=== PATIENT | male | born 1985 | race Caucasian/White ===

== ENCOUNTER 2017-07-09 08:28 | Emergency (ER) | payer OTHER ==
[~2017-07-09] VITALS: Ht 190.5 cm; Wt 154.7 kg
--- OUTSIDE RECORDS SUMMARY | ~2017-07-09 | XMS | Clinical Summary ---
Demographics + + + | Address | [address] | | | [place] [address] | + + + | Home Phone | | + + + | Preferred Language | Unknown | + + + | Marital Status | Single | + + + | Taoist Affiliation | NON | + + + | Race | White | + + + | Ethnic Group | Not or | + + + Author + + + | Author | [facility] | + + + | Organization | [facility] | + + + | Address | Unknown | + + + | Phone | Unavailable | + + + Support + + + + + | Name | Relationship | Address | Phone | + + + + + | SUMMER BRUNO & | ECON | [place] | | | [place] | | | | + + + + + Care Team Providers + +------+ + | Care Work Counselor Name | Role | Phone | + +------+ + | Sandra Hernandez | PP | | + +------+ + Source Comments LUIS DANIEL is fully live on both [facility] and [facility] In[facility] Allergies No Known Allergies Current Medications + + +--------+---------+------+------+-------+ | Prescription | Sig. | Disp. | Refills | Star | End | Statu | | | | | | t | Date | s | | | | | | Date | | | + + +--------+---------+------+------+-------+ | methocarbamol 500 | Take 1,000 mg by | | | | | Activ | | mg oral tablet | mouth four times | | | | | e | | | daily as needed. | | | | | | + + +--------+---------+------+------+-------+ | | Take 1-2 tablets by | | | | | Activ | | HYDROcodone-acetamin | mouth every four | | | | | e | | ophen 5-325 mg oral | hours as needed. | | | | | | | tablet | | | | | | | + + +--------+---------+------+------+-------+ | | Take 1 tablet by | 14 | 0 | 02/1 | 02/2 | Activ | | trimethoprim-sulfame | mouth two times | tablet | | 6/20 | 3/20 | e | | thoxazole 160-800 mg | daily for 7 days. | | | 18 | 18 | | | oral tablet | | | | | | | + + +--------+---------+------+------+-------+ | oxyCODONE | Take 1-2 tablets by | 20 | 0 | 02/1 | | Activ | | (immediate release) | mouth every six | tablet | | 6/20 | | e | | 5 mg oral tablet | hours as needed for | | | 18 | | | | | severe pain or | | | | | | | | breakthrough pain. | | | | | | + + +--------+---------+------+------+-------+ | ibuprofen 600 mg | Take 1 tablet by | 30 | 0 | 02/1 | | Activ | | oral tablet | mouth every six | tablet | | 6/20 | | e | | | hours as needed | | | 18 | | | | | (pain). Take with | | | | | | | | food and a full | | | | | | | | glass of water. | | | | | | + + +--------+---------+------+------+-------+ | acetaminophen 500 | Take 2 tablets by | 30 | 0 | 02/1 | | Activ | | mg oral tablet | mouth every six | tablet | | 6/20 | | e | | | hours as needed for | | | 18 | | | | | moderate pain. | | | | | | | | maximum 8 tablets | | | | | | | | per day | | | | | | + + +--------+---------+------+------+-------+ Active Problems Not on file Encounters +--------+ + + + + | Date | Type | Specialty | Care Team | Description | +--------+ + + + + | 07/04/ | Emergency | | Latoya Dhillon, | | | 2018 - | | | Roxy Love MD | | | | | | Micha Pena, | | | 07/05/ | | | ANP Marlene, | | | 2017 | | | SHON Quiles | | | | | | Chemo Tamayo PA-C | | +--------+ + + + + +---+ + | | Discharge | | | Summaries | | | - Roni, | | | SHON Mclain | | | - | | | 07/05/2017 | | | 7:01 AM | | | PST | | | Formatting | | | of this | | | note may be | | | different | | | from the | | | original.ED | | | | | | OBSERVATION | | | UNIT | | | DISCHARGE | | | SUMMARYDate | | | of | | | Admission: | | | 07/04/2017Da | | | te of | | | Discharge: | | | 07/05/2017Pr | | | imary Care | | | Provider: | | | Sandra | | | Mary, | | | PAED Obs | | | Provider: | | | Chemo | | | Roni | | | SHON Chief | | | Complaint: | | | Testicular | | | swelling | | | and | | | Testicular | | | PainFinal | | | Diagnoses: | | | L02.215 | | | Perineal | | | [id number]. 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 male | | | with a PMH | | | of chronic | | | hip pain | | | who | | | presented | | | to the ED | | | for | | | evaluation | | | of scrotal | | | pain. Chri | | | stopher | | | Martita is | | | a 31 y.o. | | | male w/ | | | obesity and | | | chronic | | | hip pain | | | s/p hip | | | replacement | | | who | | | presents | | | with | | | perineal | | | pain that | | | started | | | about 5-6 | | | days ago. | | | He reports | | | that he had | | | a "pimple" | | | on the | | | posterior | | | aspect of | | | his scrotum | | | that he | | | popped. A | | | day or two | | | later, he | | | noticed | | | pain and | | | swelling | | | around the | | | area which | | | has | | | progressive | | | ly | | | worsened. | | | He went to | | | the | | | [place] | | | ED | | | three days | | | ago and | | | was | | | prescribed | | | keflex and | | | bactrim. | | | The pain | | | and | | | swelling | | | didn't get | | | better, and | | | he started | | | to get | | | pain and | | | swelling up | | | into his | | | right | | | groin. He | | | has had | | | some low | | | grade | | | fevers | | | (100F) and | | | sweats, but | | | no high | | | fevers or | | | rigors. | | | Voiding | | | without | | | problem. He | | | came with | | | his GF to | | | [facility] ED for | | | further | | | eval." - | | | Micha | | | Jean, INSURANCE POLICY CLERK | | | H&P noteED | | | Acute | | | Course:ED | | | Triage | | | Vitals BP | | | Temp Pulse | | | Pulse - | | | Plethysmogr | | | aph Resp | | | SpO2 | | | 07/04/17 | | | 1523 | | | 07/04/17 | | | 1523 | | | 07/04/17 | | | 1523 | | | 07/04/17 | | | 1816 | | | 07/04/17 | | | 1523 | | | 07/04/17 | | | 1523 138/73 | | | 36.8 C | | | (!) 107 80 | | | pulses/min | | | 20 100 % | | | "Upon | | | presentatio | | | n to the | | | ED, | | | Christopher | | | 's vital | | | signs were | | | initially | | | notable for | | | elevated | | | BP to | | | 138/73, | | | tachycardia | | | to 107 | | | with | | | otherwise | | | normal | | | vital | | | signs. | | | Physical | | | exam | | | significant | | | for On the | | | right | | | posterior | | | scrotum, | | | there is a | | | punctate | | | dimple with | | | underlying | | | fluctuant | | | collection | | | just deep | | | to the | | | skin, some | | | erythema of | | | the skin. | | | Moderately | | | tender. CT | | | pelvis | | | showed | | | focal | | | perineal | | | abscess | | | with | | | phlegmonous | | | change and | | | cellulitis | | | stretching | | | and the | | | scrotum and | | | superiorly | | | around the | | | right | | | spermatic | | | cord. | | | Urology | | | service was | | | consulted | | | and drained | | | the | | | abscess. | | | Patient was | | | started on | | | IV | | | vancomycin | | | and | | | zosyn. Onc | | | e stable, | | | the patient | | | was | | | transferred | | | to the | | | Emergency | | | Department | | | Observation | | | Unit with | | | a diagnosis | | | of scrotal | | | abscess | | | for | | | continuatio | | | n of care | | | including | | | serial | | | examination | | | s, IV abx, | | | and | | | re-evaluati | | | on by | | | urology." - | | | Micha | | | Jean, | | | NPObservati | | | on Unit | | | Course:Whil | | | e in ED | | | Obs, the | | | patient | | | remained | | | hemodynamic | | | ally | | | stable. He | | | has been | | | tolerating | | | the | | | antibiotics | | | . He feels | | | well enough | | | for | | | discharge | | | this | | | morning | | | after | | | urology | | | evaluated | | | and | | | repacked | | | his | | | incision | | | site. They | | | recommended | | | BID | | | packing | | | until wound | | | heals in | | | which his | | | significant | | | other with | | | help with. | | | They | | | agreed with | | | | | | antibiotics | | | and follow | | | up with | | | his PCP in | | | 7 days. If | | | he cannot | | | get into | | | his PCPs | | | office he | | | can call | | | them for a | | | follow up | | | appointment | | | .Imaging/Pe | | | rtinent | | | Results:CT | | | abdomen/pel | | | vis with IV | | | contrast | | | IMPRESSION: | | | - Focal | | | perineal | | | abscess | | | with | | | phlegmonous | | | change and | | | cellulitis | | | stretching | | | and the | | | scrotum and | | | superiorly | | | around the | | | right | | | spermatic | | | cord. | | | Consults:Ur | | | ologyPertin | | | ent Exam | | | Findings:BP | | | 132/70 | | | | Pulse 78 | | | | Temp 37.2 | | | C | RR 16 | | | | Ht 1.905 | | | m (6' 3") | | | | Wt 153.3 | | | kg (338 lb) | | | | SpO2 94% | | | | BMI | | | 42.25 | | | kg/(m^2)Gen | | | eral | | | appearance: | | | Non-toxic. | | | NAD.HEENT: | | | NCAT. | | | Sclera | | | anicteric, | | | without | | | injection, | | | EOMI. | | | Mucous | | | membranes | | | moist. | | | Trachea | | | midline.CV: | | | +S1, +S2, | | | RRR, no | | | rubs, | | | murmurs, | | | clicks or | | | gallops.Res | | | p: Chest | | | symmetrical | | | . No | | | respiratory | | | distress. | | | No use of | | | accessory | | | muscles. | | | CTAB, no | | | wheezes, | | | rales, | | | rhonchi, or | | | | | | rubs.Abdome | | | n: Soft, | | | NT/ND. No | | | rebound or | | | guarding. | | | NABS x 4. | | | No HSM | | | noted.Extre | | | m: No | | | deformities | | | or visible | | | joint | | | swelling. | | | : | | | Perineal/sc | | | rotal | | | abscess s/p | | | I&D and | | | packed/band | | | aged just | | | moments ago | | | by | | | urology.Per | | | ipheral | | | Vascular: | | | No edema, | | | warmth, or | | | TTP. 2+ DP | | | pulses | | | bilaterally | | | . No | | | cyanosis or | | | | | | clubbing.Ne | | | uro: A&O | | | x3, CN | | | II-XII | | | intact | | | grossly, | | | equal | | | movement of | | | all | | | extremities | | | , sensation | | | and motor | | | function | | | grossly | | | intact.Psyc | | | h: | | | Appropriate | | | mood, | | | affect and | | | insight.Ski | | | n: | | | Appropriate | | | color, | | | warm, | | | dry.Assessm | | | ent/Plan:1. | | | Scrotal | | | abscess s/p | | | I&D - | | | Tolerated | | | IV unasyn, | | | vanco, and | | | clindamycin | | | while here | | | - | | | Transition | | | to PO | | | bactrim now | | | that the | | | wound has | | | been | | | drained - | | | Urology | | | recommends | | | BID packing | | | until | | | wound heals | | | - Follow | | | up with PCP | | | in 5-7 | | | days or | | | with | | | urology if | | | unable to | | | get into | | | your | | | PCPDisposit | | | ion: | | | HomeDischar | | | ge | | | Condition: | | | StableMedic | | | ations: | | | Discharge | | | Medication | | | List as of | | | 07/05/2017 | | | 9:44 AM | | | START | | | taking | | | these | | | medications | | | Details | | | acetaminoph | | | en 500 mg | | | oral tablet | | | Take 2 | | | tablets by | | | mouth every | | | six hours | | | as needed | | | for | | | moderate | | | pain. | | | maximum 8 | | | tablets per | | | day, | | | Disp-30 | | | tablet, | | | R-0, Print | | | Prescriptio | | | n | | | ibuprofen | | | 600 mg oral | | | tablet | | | Take 1 | | | tablet by | | | mouth every | | | six hours | | | as needed | | | (pain). | | | Take with | | | food and a | | | full glass | | | of water., | | | Disp-30 | | | tablet, | | | R-0, Print | | | Prescriptio | | | n | | | oxyCODONE | | | (immediate | | | release) 5 | | | mg oral | | | tablet Take | | | 1-2 | | | tablets by | | | mouth every | | | six hours | | | as needed | | | for severe | | | pain or | | | breakthroug | | | h pain., | | | Disp-20 | | | tablet, | | | R-0Schedule | | | IIPrint | | | Prescriptio | | | n | | | trimethopri | | | m-sulfameth | | | oxazole | | | 160-800 mg | | | oral tablet | | | Take 1 | | | tablet by | | | mouth two | | | times daily | | | for 7 | | | days., | | | Disp-14 | | | tablet, | | | R-0, Print | | | Prescriptio | | | n | | | Instruction | | | s: 1. | | | Activity: | | | As | | | tolerated2. | | | Diet: | | | Regular3. | | | Follow up | | | or | | | establish | | | care with a | | | primary | | | care | | | provider in | | | 7 days, or | | | sooner if | | | needed.4. | | | Return to | | | care if the | | | symptoms | | | you | | | presented | | | with worsen | | | or persist | | | despite | | | current | | | treatment | | | plan or if | | | any other | | | symptoms | | | arise that | | | are | | | concerning | | | such as but | | | not | | | limited to | | | fevers, | | | chills, | | | nausea, | | | vomiting, | | | chest pain, | | | abdominal | | | pain, | | | shortness | | | of breath, | | | neck pain | | | or | | | stiffness, | | | severe | | | headaches, | | | confusion, | | | or if any | | | other | | | symptoms | | | arise that | | | are | | | concerning. | | | Follow-up: | | | 1. PCP in 7 | | | days or | | | sooner if | | | needed for | | | wound | | | recheck2. | | | Urology in | | | 7 days if | | | you cannot | | | see your | | | PCP by that | | | timeNoah | | | Tamayo, | | | PA-CEmergen | | | cy | | | DepartmentR | | | esults for | | | orders | | | placed or | | | performed | | | during the | | | hospital | | | encounter | | | of 07/04/17 | | | BASIC | | | METABOLIC | | | SET (NA, K, | | | CL, TCO2, | | | BUN, CR, | | | GLU, CA) | | | Result | | | Value Ref | | | Range | | | GLUCOSE, | | | PLASMA | | | (LAB) 89 70 | | | - 99 mg/dL | | | BUN, | | | PLASMA | | | (LAB) 12 6 | | | - 20 mg/dL | | | CREATININE | | | PLASMA | | | (LAB) 1.27 | | | 0.70 - 1.30 | | | mg/dL | | | EGFR | | | - | | | SOUTH AFRICAN | | | >60 >60 | | | mL/min | | | EGFR NON | | | -JAN | | | RICAN >60 | | | >60 mL/min | | | SODIUM, | | | PLASMA | | | (LAB) 135 | | | (L) 136 - | | | 145 mmol/L | | | POTASSIUM, | | | PLASMA | | | (LAB) 3.8 | | | 3.4 - 5.0 | | | mmol/L | | | CHLORIDE, | | | PLASMA | | | (LAB) 102 | | | 97 - 108 | | | mmol/L | | | TOTAL CO2, | | | PLASMA | | | (LAB) 25 21 | | | - 32 | | | mmol/L | | | CALCIUM, | | | PLASMA | | | (LAB) 9.0 | | | 8.6 - 10.2 | | | mg/dL | | | ANION GAP 8 | | | 4 - 11 | | | mmol/L | | | POTASSIUM | | | CMNT No | | | Hemo UA, | | | DIPSTICK | | | ONLY Result | | | Value Ref | | | Range | | | COLOR(UR) | | | Yellow | | | APPEARANCE | | | Clear | | | GLUCOSE(UR) | | | Negative | | | Negative, | | | 50.0 mg/dL | | | | | | PROTEIN(LAB | | | ) Negative | | | Negative, | | | 30.0 mg/dL | | | BILIRUBIN | | | Negative | | | Negative | | | UROBILINOGE | | | N >=4.0 (A) | | | <2.0 mg/dL | | | PH(UR) | | | 5.0 5.0 - | | | 8.0 BLOOD | | | Negative | | | Negative | | | KETONES 5.0 | | | (A) | | | Negative | | | mg/dL | | | NITRITES | | | Negative | | | Negative | | | LEUKOCYTE | | | ESTERASE | | | Negative | | | Negative | | | SPECIFIC | | | GRAVITY | | | 1.041 (H) | | | 1.005 - | | | 1.030 | | | URINE, | | | MICROSCOPIC | | | EXAM | | | Result | | | Value Ref | | | Range RED | | | CELLS 1 0 - | | | 3 /hpf | | | WHITE CELLS | | | 1 0 - 5 | | | /hpf | | | BACTERIA | | | None None | | | /hpf YEAST | | | (LAB) None | | | None /hpf | | | SQUAMOUS | | | EPITHELIAL | | | None None | | | /hpf | | | MUCOUS None | | | None /hpf | | | | | | TRICHOMONAS | | | None None | | | /hpf | | | NON-SQUAMOU | | | S EPITH | | | None None | | | /hpf | | | HYALINE | | | CASTS 0 0 - | | | 2 /lpf | | | GRANULAR | | | CASTS 0 0 - | | | 2 /lpf | | | CELLULAR | | | CASTS 0 <=0 | | | /lpf | | | TRIPLE P04 | | | CRYSTALS | | | None None | | | /hpf | | | CALCIUM | | | OXALATE | | | JUSTINO None | | | None /hpf | | | URIC ACID | | | CRYSTALS | | | None None | | | /hpf | | | AMORPHOUS | | | CRYSTALS | | | None None | | | /hpf | | | CULTURE, | | | WOUND | | | ABSCESS OR | | | ASPIRATE W/ | | | ANAEROBE | | | Result | | | Value Ref | | | Range | | | CULTURE | | | RESULT | | | Staphylococ | | | cus aureus | | | (A) | | | Susceptibil | | | ity | | | Staphylococ | | | cus aureus | | | - | | | SUSCEPTIBIL | | | ITY-RENEE | | | Cefazolin | | | Sensitive | | | | | | Clindamycin | | | Sensitive | | | | | | Erythromyci | | | n | | | Sensitive | | | Oxacillin | | | Sensitive | | | | | | Penicillin | | | Resistant | | | | | | Trimethopri | | | m/Sulfa | | | Sensitive | | | | | | Tetracyclin | | | e | | | Sensitive | | | | | | Vancomycin | | | Sensitive | | | ED | | | BG-LAC,POC | | | Result | | | Value Ref | | | Range ED | | | BG POC TC02 | | | 28 23 - 29 | | | mmol/L ED | | | BG POC PH | | | 7.40 7.35 - | | | 7.45 ED | | | BG POC PCO2 | | | 43 35 - 50 | | | mmHg ED | | | BG POC HCO3 | | | 26 22 - 28 | | | mmol/L ED | | | BG POC BE | | | 2.0 mmol/L | | | ED BG POC | | | PO2 <50 (L) | | | 30 - 55 | | | mmHg ED BG | | | POC SO2 42 | | | % ED | | | LACTATE POC | | | 1.2 0.5 - | | | 2.2 mmol/L | | | ED BG POC | | | TEMP 98.9 F | | | ISTAT | | | SAMPLE TYPE | | | VENOUS | | | CBC AND | | | AUTO DIFF | | | Result | | | Value Ref | | | Range | | | WHITE CELL | | | COUNT 17.40 | | | (H) 3.50 - | | | 10.80 K/cu | | | mm RED | | | CELL COUNT | | | 5.08 4.50 - | | | 6.00 M/cu | | | mm | | | HEMOGLOBIN | | | 15.3 13.5 - | | | 17.5 g/dL | | | HEMATOCRIT | | | 45.6 41.0 | | | - 53.0 % | | | MCV 89.8 | | | 80.0 - 96.0 | | | fL MCHC | | | 33.6 33.0 - | | | 35.5 g/dL | | | RDW SD | | | 41.3 35.1 - | | | 46.3 fL | | | PLATELET | | | COUNT 321 | | | 150 - 400 | | | K/cu mm | | | MPV 9.5 (L) | | | 9.7 - 12.3 | | | fL NRBC% | | | 0.0 0.0 - | | | 0.3 % | | | NRBC# 0.00 | | | 0.00 - 0.02 | | | K/cu mm | | | NEUTROPHIL | | | % 72.6 (H) | | | 50.0 - 70.0 | | | % | | | LYMPHOCYTE | | | % 16.1 (L) | | | 18.0 - 42.0 | | | % | | | MONOCYTE % | | | 8.0 3.5 - | | | 9.0 % EOS | | | % 2.5 1.0 - | | | 3.0 % | | | BASO % 0.3 | | | 0.0 - 2.0 % | | | IG% 0.5 | | | 0.0 - 1.0 % | | | | | | NEUTROPHIL | | | # 12.61 (H) | | | 1.80 - | | | 7.70 K/cu | | | mm | | | LYMPHOCYTE | | | # 2.81 1.00 | | | - 4.80 | | | K/cu mm | | | MONOCYTE # | | | 1.40 (H) | | | 0.10 - 0.90 | | | K/cu mm | | | EOS # 0.43 | | | 0.00 - 0.50 | | | K/cu mm | | | BASO # 0.06 | | | 0.00 - | | | 0.10 K/cu | | | mm IG# | | | 0.09 0.00 - | | | 0.10 K/cu | | | mm CULTURE, | | | BLOOD | | | BACTI & | | | YEAST [facility] | | | Result | | | Value Ref | | | Range | | | CULTURE | | | RESULT No | | | growth to | | | date. | | | CULTURE, | | | BLOOD BACTI | | | & YEAST | | | [facility] Result | | | Value Ref | | | Range | | | CULTURE | | | RESULT No | | | growth to | | | date. | +---+ + +--------+ +---+---+---+ | 07/04/ | Procedure | | | | | 2018 | Pass | | | | +--------+ +---+---+---+ from Last 3 Months Social History + +-------+ +--------+------+ | Tobacco [...] | | + +---+---+---+ + + | Tobacco Cessation: Ready to Quit: No | | Comments: 1 ppd | + + + + +---------+ + | Alcohol Use | Drinks/We | oz/Week | Comments | | | ek | | | + + +---------+ + | Yes | | | social | + + +---------+ + + + + | Sex Assigned at | Date Recorded | | | | + + + | Not on file | | + + + Last Filed Vital Signs + + + + | Vital Sign | Reading | Time Taken | + + + + | Blood Pressure | 132/70 | 07/05/2017 10:05 AM PST | + + + + | Pulse | 78 | 07/05/2017 10:05 AM PST | + + + + | Temperature | 37.2 C (98.9 F) | 07/05/2017 7:42 AM PST | + + + + | Respiratory Rate | 16 | 07/05/2017 7:42 AM PST | + + + + | Oxygen Saturation | 94% | 07/05/2017 7:42 AM PST | + + + + | Inhaled Oxygen | - | - | | Concentration | | | + + + + | Weight | 153.3 kg (338 lb) | 07/04/2017 3:23 PM PST | + + + + | Height | 190.5 cm (6' 3") | 07/04/2017 5:59 PM PST | + + + + | Body Mass Index | 42.25 | 07/04/2017 3:23 PM PST | + + + + Plan of Treatment + + + + + | Health Maintenance | Due Date | Last Done | Comments | + + + + + | INFLUENZA VACCINE | | | | | (FLU SHOT) | 7 | | | + + + + + Results BELIA CONNER ONLY (07/04/2017 6:32 PM) + + + + | Component | Value | Ref Range | + + + + | COLOR(UR) | Yellow | | + + + + | APPEARANCE | Clear | | + + + + | GLUCOSE(UR) | Negative | Negative, 50.0 mg/dL | + + + + | PROTEIN(LAB) | Negative | Negative, 30.0 mg/dL | + + + + | BILIRUBIN | Negative | Negative | + + + + | UROBILINOGEN | >=4.0 (A) | <2.0 mg/dL | + + + + | PH(UR) | 5.0 | 5.0 - 8.0 | + + + + | BLOOD | Negative | Negative | + + + + | KETONES | 5.0 (A) | Negative mg/dL | + + + + | NITRITES | Negative | Negative | + + + + | LEUKOCYTE ESTERASE | Negative | Negative | + + + + | SPECIFIC GRAVITY | 1.041 (H)Comment: Specific [place] | 1.005 - 1.030 | | | performed by refractometry | | + + + + + + + | Specimen | Performing Laboratory | + + + | Urine | [facility], [address] | | | [place] [address] | + + + URINE, MICROSCOPIC EXAM (07/04/2017 6:32 PM) + +-------+ + | Component | Value | Ref Range | + +-------+ + | RED CELLS | 1 | 0 - 3 /hpf | + +-------+ + | WHITE CELLS | 1 | 0 - 5 /hpf | + +-------+ + | BACTERIA | None | None /hpf | + +-------+ + | YEAST (LAB) | None | None /hpf | + +-------+ + | SQUAMOUS EPITHELIAL | None | None /hpf | + +-------+ + | MUCOUS | None | None /hpf | + +-------+ + | TRICHOMONAS | None | None /hpf | + +-------+ + | NON-SQUAMOUS EPITH | None | None /hpf | + +-------+ + | HYALINE CASTS | 0 | 0 - 2 /lpf | + +-------+ + | GRANULAR CASTS | 0 | 0 - 2 /lpf | + +-------+ + | CELLULAR CASTS | 0 | <=0 /lpf | + +-------+ + | TRIPLE P04 CRYSTALS | None | None /hpf | + +-------+ + | CALCIUM OXALATE JUSTINO | None | None /hpf | + +-------+ + | URIC ACID CRYSTALS | None | None /hpf | + +-------+ + | AMORPHOUS CRYSTALS | None | None /hpf | + +-------+ + + + + | Specimen | Performing Laboratory | + + + | Urine | [facility], [facility] [address] | | | [place] [address] | + + + ED BG-LAC,POC (07/04/2017 6:01 PM) + +---------+ + | Component | Value | Ref Range | + +---------+ + | ED BG POC TC02 | 28 | 23 - 29 mmol/L | + +---------+ + | ED BG POC PH | 7.40 | 7.35 - 7.45 | + +---------+ + | ED BG POC PCO2 | 43 | 35 - 50 mmHg | + +---------+ + | ED BG POC HCO3 | 26 | 22 - 28 mmol/L | + +---------+ + | ED BG POC BE | 2.0 | mmol/L | + +---------+ + | ED BG POC PO2 | <50 (L) | 30 - 55 mmHg | + +---------+ + | ED BG POC SO2 | 42 | % | + +---------+ + | ED LACTATE POC | 1.2 | 0.5 - 2.2 mmol/L | + +---------+ + | ED BG POC TEMP | 98.9 F | | + +---------+ + | ISTAT SAMPLE TYPE | VENOUS | | + +---------+ + + + + | Specimen | Performing Laboratory | + + + | | [facility] [address] | | | [place] [address] | + + + CT PELVIS W IV CONTRAST (07/04/2017 5:19 PM) + + + | Specimen | Performing Laboratory | + + + | | [facility] VOICE RECOGNITION | + + + + + | Narrative | + + | EXAM: CT pelvis with contrast HISTORY: R inguinal pain and peroneal pain/swelling | | COMPARISON: None available. TECHNIQUE: CT of the pelvis with non-ionic | | iodinated intravenous contrast. Coronal and sagittal reformats were created. | | FINDINGS: PELVIC ORGANS/BLADDER: There is a perineal abscess measuring 3.1 x 1.3 x | | 1.0cm (image 3/77 and 150), with adjacent inflammatory stranding and phlegmonous | | change extending superiorly into the base of the scrotum and surrounding the right | | spermatic cord. There is no subcutaneous gas. GI TRACT: Visualized portion is | | unremarkable. The appendix is well-visualized and normal appearing. PERITONEUM: No | | free air or fluid. LYMPH NODES: Multiple enlarged bilateral inguinal lymphadenopathy | | are noted (image 3/43-57). Index right groin lymph node measures 3.3 x 2.0 cm (image | | 91 and 354); these are likely reactive. VESSELS: Unremarkable. BONES AND SOFT | | TISSUES: Right total hip arthroplasty hardware is noted with associated artifact | | limiting evaluation. IMPRESSION: Focal perineal abscess with phlegmonous change | | and cellulitis stretching and the scrotum and superiorly around the right spermatic | | cord. These results were discussed with Dr. Tafoya On 07/04/17 @ 5:45PM by . | | Bronson Lea - Unloader Operator. I have personally reviewed the images | | and, if necessary, edited the report. I agree with the report as now presented. | + + + + | Procedure Note | + + | Service Account, RadiOfferum Res In Interface - 07/04/2017 6:07 PM PST EXAM: CT pelvis | | with contrastHISTORY: R inguinal pain and peroneal pain/swellingCOMPARISON: None | | available.TECHNIQUE: CT of the pelvis with non-ionic iodinated intravenous contrast. | | Coronal and sagittal reformats were created.FINDINGS:PELVIC ORGANS/BLADDER: There is a | | perineal abscess measuring 3.1 x 1.3 x 1.0cm (image 377 and 1150), with adjacent | | inflammatory stranding and phlegmonous change extending superiorly into the base of the | | scrotum and surrounding the right spermatic cord. There is no subcutaneous gas.GI TRACT: | | Visualized portion is unremarkable. The appendix is well-visualized and normal | | appearing.PERITONEUM: No free air or fluid.LYMPH NODES: Multiple enlarged bilateral | | inguinal lymphadenopathy are noted (image 3/43-57). Index right groin lymph node | | measures 3.3 x 2.0 cm (image and ); these are likely reactive.VESSELS: | | Unremarkable.BONES AND SOFT TISSUES: Right total hip arthroplasty hardware is noted with | | associated artifact limiting evaluation.IMPRESSION: Focal perineal abscess with | | phlegmonous change and cellulitis stretching and the scrotum and superiorly around the | | right spermatic cord. These results were discussed with Dr. Tafoya On 07/04/17 @ | | 5:45PM by Dr. Bronson Lea - Unloader Operator.I have personally reviewed the images | | and, if necessary, edited the report. I agree with the report as now presented. | |LYMPH NODES: Multiple enlarged bilateral inguinal lymphadenopathy are noted (image 3/43-57) . Index right groin lymph node measures 3.3 x 2.0 cm (image and 3); these are likely reactive. | | | |VESSELS: Unremarkable. | | | |BONES AND SOFT TISSUES: Right total hip arthroplasty hardware is noted with associated kar fact limiting evaluation. | | | | | |IMPRESSION: | |Focal perineal abscess with phlegmonous change and cellulitis stretching and the scrotum an d superiorly around the right spermatic cord. | | | |These results were discussed with Dr. Tafoya On 07/04/17 @ 5:45PM by Dr. Bronson Lea - Unloader Operator. | | | | | | | |I have personally reviewed the images and, if necessary, edited the report. I agree with t he report as now presented. | + + CBC AND AUTO DIFF (07/04/2017 3:41 PM) + + + + | Component | Value | Ref Range | + + + + | WHITE CELL COUNT | 17.40 (H) | 3.50 - 10.80 K/cu mm | + + + + | RED CELL COUNT | 5.08 | 4.50 - 6.00 M/cu mm | + + + + | HEMOGLOBIN | 15.3 | 13.5 - 17.5 g/dL | + + + + | HEMATOCRIT | 45.6 | 41.0 - 53.0 % | + + + + | MCV | 89.8 | 80.0 - 96.0 fL | + + + + | MCHC | 33.6 | 33.0 - 35.5 g/dL | + + + + | RDW SD | 41.3 | 35.1 - 46.3 fL | + + + + | PLATELET COUNT | 321 | 150 - 400 K/cu mm | + + + + | MPV | 9.5 (L) | 9.7 - 12.3 fL | + + + + | NRBC% | 0.0 | 0.0 - 0.3 % | + + + + | NRBC# | 0.00 | 0.00 - 0.02 K/cu mm | + + + + | NEUTROPHIL % | 72.6 (H) | 50.0 - 70.0 % | + + + + | LYMPHOCYTE % | 16.1 (L) | 18.0 - 42.0 % | + + + + | MONOCYTE % | 8.0 | 3.5 - 9.0 % | + + + + | EOS % | 2.5 | 1.0 - 3.0 % | + + + + | BASO % | 0.3 | 0.0 - 2.0 % | + + + + | IG% | 0.5Comment: Increased immature granulocytes | 0.0 - 1.0 % | | | (IG) define a left shift. Immature | | | | granulocytes (IG) are an automated count of | | | | metamyelocytes, myelocytes and | | | | promyelocytes. Bands are not included in | | | | the IG count. Bands are included in the | | | | neutrophil count. | | + + + + | NEUTROPHIL # | 12.61 (H) | 1.80 - 7.70 K/cu mm | + + + + | LYMPHOCYTE # | 2.81 | 1.00 - 4.80 K/cu mm | + + + + | MONOCYTE # | 1.40 (H) | 0.10 - 0.90 K/cu mm | + + + + | EOS # | 0.43 | 0.00 - 0.50 K/cu mm | + + + + | BASO # | 0.06 | 0.00 - 0.10 K/cu mm | + + + + | IG# | 0.09 | 0.00 - 0.10 K/cu mm | + + + + + + + | Specimen | Performing Laboratory | + + + | Blood | [facility], [address] | | | [place] [address] | + + + + + | Narrative | + + | New reference ranges for IG% and IG# effective 06/09/2017. Increased immature | | granulocytes (IG) define a left shift. Immature granulocytes (IG) are an automated count | | of metamyelocytes, myelocytes and promyelocytes. Bands are not included in the IG | | count. Bands are included in the neutrophil count. | + + CBC, WITH DIFFERENTIAL (07/04/2017 3:41 PM) + + + | Specimen | Performing Laboratory | + + + | Blood | | + + + + + | Narrative | + + | The following orders were created for panel order CBC, WITH DIFFERENTIAL. | | Procedure | | Abnormality Status | | --------- | | ------ CBC AND AUTO | | DIFF[[id number]] Abnormal Final | | result Please view results for these tests on the | | individual orders. | + + BASIC METABOLIC SET (NA, K, CL, TCO2, BUN, CR, GLU, CA) (07/04/2017 3:41 PM) + +---------+ + | Component | Value | Ref Range | + +---------+ + | GLUCOSE, PLASMA | 89 | 70 - 99 mg/dL | | (LAB) | | | + +---------+ + | BUN, PLASMA (LAB) | 12 | 6 - 20 mg/dL | + +---------+ + | CREATININE PLASMA | 1.27 | 0.70 - 1.30 mg/dL | | (LAB) | | | + +---------+ + | EGFR - | >60 | >60 mL/min | | SOUTH AFRICAN | | | + +---------+ + | EGFR NON | >60 | >60 mL/min | | -SOUTH AFRICAN | | | + +---------+ + | SODIUM, PLASMA (LAB) | 135 (L) | 136 - 145 mmol/L | + +---------+ + | POTASSIUM, PLASMA | 3.8 | 3.4 - 5.0 mmol/L | | (LAB) | | | + +---------+ + | CHLORIDE, PLASMA | 102 | 97 - 108 mmol/L | | (LAB) | | | + +---------+ + | TOTAL CO2, PLASMA | 25 | 21 - 32 mmol/L | | (LAB) | | | + +---------+ + | CALCIUM, PLASMA | 9.0 | 8.6 - 10.2 mg/dL | | (LAB) | | | + +---------+ + | ANION GAP | 8 | 4 - 11 mmol/L | + +---------+ + | POTASSIUM CMNT | No Hemo | | + +---------+ + + + + | Specimen | Performing Laboratory | + + + | Blood | [facility], [address] | | | [place] [address] | + + + + + | Narrative | + + | Adult glucose reference range change effective 7-17. GFR is estimated using the | | MDRD equation recommended by the National Kidney Disease Education Program. | | Estimated GFR Interpretive Information: <60 mL/min/1.73 sq | | m Chronic Kidney Disease <15 mL/min/1.73 sq | | m Kidney Failure Estimated GFR greater that 60 mL/min/1.73 | | sq m is of limited clinical value. The MDRD equation is not valid in the following | | situations: - Patients under 18 years of age - Severe malnutrition or obesity - | | Vegetarian diet - Rapidly changing kidney function | + + from Last 3 Months
--- OUTSIDE RECORDS SUMMARY | ~2017-07-09 | XMS | Encounter Summary ---
Demographics + + + | Address | [address] | | | [place] [address] | + + + | Home Phone | | + + + | Preferred Language | Unknown | + + + | Marital Status | Single | + + + | Congregation Affiliation | NON | + + + | Race | White | + + + | Ethnic Group | Not or | + + + Author + + + | Author | [facility] | + + + | Organization | [facility] | + + + | Address | [...] Team Providers + +------+ + | Care Clinical Social Work Therapist Name | Role | Phone | + [...] + + | 07/04/ | Emergency | [facility] Emergency | Latoya Dhillon, | | | 2018 - | | Department [address] | Roxy Love MD [address] | | | | [address] | [address] | | | 07/05/ | | [facility] | [place], [place] | | | 2018 | | [place] [address] | [address] | | | | | [phone] | [phone] | | | | | | | | | | | | Micha Pena, | | | | | | ROSA [address] | | | | | | [address] | | | | | | [place], [place] | | | | | | [address] | | | | | | [phone] | | | | | | | | | | | | Etta Rosario, | | | | | | SHON [address] | | | | | | [facility] | | | | | | [place], [place] | | | | | | [address] | | | | | | [phone] | | | | | | | [...] on file | | + + + as of this encounter Last Filed Vital [...] PM PST | + + + + in this encounter Discharge Summaries Chemo Tamayo PA-C - 07/05/2017 7:01 AM PSTFormatting of this note may be different from the original. 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 male with a PMH of chronic hip pain who prese nted to the ED for evaluation of scrotal pain. William Bruno is a 31 y.o. male w/ obesity [...] has progressively worsened. He went to the [facility] ED threedays ago and was prescribed keflex and bactrim. The pain and swelling didn't get better, and he started to get pain and swelling up into his right groin. He has had some lo w grade fevers (100F) and sweats, but no high fevers or rigors. Voiding without problem. He came with his GF to [facility] ED for further eval." - Micha Pena NP H&P note ED Acute Course: ED Triage Vitals BP Temp Pulse Pulse - Plethysmograph Resp SpO2 07/04/17 1523 07/04/17 1523 07/04/17 1523 07/04/17 1816 07/04/17 1523 07/04/17 1523 138/73 36.8 C (!) 107 80 pulses/min 20 100 % "Upon presentation to the ED, William's vital signs were initially notable for elevated [...] 1.27 0.70 - 1.30 mg/dL EGFR - BULGARIAN >60 >60 mL/min EGFR NON -BULGARIAN >60 >60 mL/min SODIUM, PLASMA (LAB) 135 [...] K/cu mm CULTURE, BLOOD BACTI & YEAST [facility] Result Value Ref Range CULTURE RESULT No growth to date. CULTURE, BLOOD BACTI & YEAST [facility] Result Value Ref Range CULTURE RESULT No growth to date. in this encounter Discharge Instructions Chemo Tamayo PA-C - 07/05/2017Follow up [...] any other symptoms arise that are concerning. The following attachments cannot be sent through Care Everywhere.Abscess: Perineal (Slovak )in this encounter Medications at Time of Discharge + + +--------+---------+ + + | Medication | Sig. | Disp. | Refills | Start | End Date | | | | | | Date | | + + +--------+---------+ + + | acetaminophen 500 | Take 2 tablets by | 30 | 0 | / | | | mg oral tablet | mouth every six | tablet | | 18 | | | | hours as needed for | | | | | | | moderate pain. | | | | | | | maximum 8 tablets | | | | | | | per day | | | | | + + +--------+---------+ + + | | Take 1-2 tablets by | | | | | | HYDROcodone-acetamin | mouth every four | | | | | | ophen 5-325 mg oral | hours as needed. | | | | | | tablet | | | | | | + + +--------+---------+ + + | ibuprofen 600 mg | Take 1 tablet by | 30 | 0 | 07/05/19 | | | oral tablet | mouth every six | tablet | | 18 | | | | hours as needed | | | | | | | (pain). Take with | | | | | | | food and a full | | | | | | | glass of water. | | | | | + + +--------+---------+ + + | methocarbamol 500 | Take 1,000 mg by | | | | | | mg oral tablet | mouth four times | | | | | | | daily as needed. | | | | | + + +--------+---------+ + + | oxyCODONE | Take 1-2 tablets by | 20 | 0 | 07/05/19 | | | (immediate release) | mouth every six | tablet | | 18 | | | 5 mg oral tablet | hours as needed for | | | | | | | severe pain or | | | | | | | breakthrough pain. | | | | | + + +--------+---------+ + + | | Take 1 tablet by | 14 | 0 | 07/05/19 | | | trimethoprim-sulfame | mouth two times | tablet | | 18 | 8 | | thoxazole 160-800 mg | daily for 7 days. | | | | | | oral tablet | | | | | | + + +--------+---------+ + + as of this encounter Progress Notes Mary Connolly MD - 07/05/2017 9:44 AM PSTFormatting of this note may be different fr om the original. BRIEF UROLOGY NOTE S: No acute events [...] him with packing changes. He lives in [place] and would prefer to follow up with his PCP there as opposed to coming back here. - Antibiotic regimen for cellulitis per ED staff - Please follow up wound culture and adjust antibiotics accordingly - Continue BID perineal wound packing changes - Follow up with PCP in one week for wound check Mary Connolly MD Department of Urology Pager [phone] in this encounter Plan of Treatment + +--------+ + + | Name | Priori | Associated Diagnoses | Date/Time | | | ty | | | + +--------+ + + | CULTURE, BLOOD BACTI & YEAST | Urgent | | 07/04/2017 5:50 PM | | | | | PST | + +--------+ + + | CULTURE, BLOOD BACTI & YEAST | Urgent | | 07/04/2017 6:15 PM | | | | | PST | + +--------+ + + | CULTURE, BLOOD BACTI & YEAST [facility] | Urgent | | 07/04/2017 5:50 PM | | | | | PST | + +--------+ + + | CULTURE, BLOOD BACTI & YEAST [facility] | Urgent | | 07/04/2017 6:15 PM | | | | | PST | + +--------+ + + | CULTURE, WOUND ABSCESS OR | Urgent | | 07/04/2017 8:00 PM | | ASPIRATE W/ ANAEROBE | | | PST | + +--------+ + + + +--------+ + + | Name | Priori | Associated Diagnoses | Order Schedule | | | ty | | | + +--------+ + + | CULTURE, BLOOD BACTI & YEAST | Urgent | | Collect Now for 1 | | | | | Occurrences starting | | | | | 07/04/2017 until | | | | | 07/04/2017 | + +--------+ + + | CULTURE, BLOOD BACTI & YEAST | Urgent | | Collect Now for 1 | | | | | Occurrences starting | | | | | 07/04/2017 until | | | | | 07/04/2017 | + +--------+ + + | URINE, MICROSCOPIC EXAM | Urgent | | Collect Now for 1 | | | | | Occurrences starting | | | | | 07/04/2017 until | | | | | 07/04/2017 | + +--------+ + + as of this encounter Results URINE, MICROSCOPIC EXAM (07/04/2017 6:32 PM) + [...] | + + + | Urine | [facility], [address] | | | [place] [address] | + + + UA, DIPSTICK ONLY (07/04/2017 6:32 PM) + + + [...] | SPECIFIC GRAVITY | 1.041 (H)Comment: Specific [place] | 1.005 - 1.030 | | | performed by refractometry | | + + + + + + + | Specimen | Performing Laboratory | + + + | Urine | [facility], [address]ORE [address] | | | [place] [address] | + + + ED BG-LAC,POC (07/04/2017 [...] Laboratory | + + + | | [facility] [address] | | | [place] [address] | + + + CT PELVIS W IV CONTRAST (07/04/2017 5:19 PM) + + + | Specimen | Performing Laboratory | + + + | | [facility] RADIOLOGY VOICE RECOGNITION | + + + [...] x | | 1.0cm (image 3/77 and 1/150), with adjacent inflammatory stranding and phlegmonous | [...] 3.3 x 2.0 cm (image | | 191 and 3/54); these are likely reactive. VESSELS: Unremarkable. BONES AND SOFT | | TISSUES: Right total hip arthroplasty hardware is noted with associated artifact | | limiting evaluation. IMPRESSION: Focal perineal abscess with phlegmonous change | | and cellulitis stretching and the scrotum and superiorly around the right spermatic | | cord. These results were discussed with Dr. Tafoya On 07/04/17 @ 5:45PM by | | Bronson Lea - Product Line Manager. I have personally reviewed the images | [...] | measures 3.3 x 2.0 cm (image 1 and 3/54); these are likely reactive.VESSELS: | [...] | 5:45PM by Dr. Bronson Lea - Product Line Manager.I have personally reviewed the images | | and, if necessary, edited the report. I agree with the report as now presented. | |LYMPH NODES: Multiple enlarged bilateral inguinal lymphadenopathy are noted (image 3/43-57) . Index right groin lymph node measures 3.3 x 2.0 cm (image 1/ and 3/54); these are likely reactive. | [...] @ 5:45PM by Dr. Bronson Lea - Product Line Manager. | | | | | | | [...] | + + + | Blood | [facility], [address] | | | [place] [address] | + + + + + | [...] in the neutrophil count. | + + BASIC METABOLIC SET (NA, [...] | >60 | >60 mL/min | | BULGARIAN | | | + +---------+ + | EGFR NON | >60 | >60 mL/min | | -BULGARIAN | | | + +---------+ + | [...] | + + + | Blood | [facility], [address] | | | [place] [address] | + + + + + | Narrative | + + | Adult glucose reference range change effective 7-12-17. GFR is estimated using the | | [...] Rapidly changing kidney function | + + CBC, WITH DIFFERENTIAL (07/04/2017 [...] | ------ CBC AND AUTO | | DIFF[[id number]] Abnormal Final | | result Please view results for these tests on the | | individual orders. 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 | + + Administered Medications + +--------+ + +------+------+ | Medication Order | MAR | Action | Dose | Rate | Site | | | Action | Date | | | | + +--------+ + +------+------+ | acetaminophen (TYLENOL) tablet | Given | | 1,000 mg | | | | 1,000 mg 1,000 mg, oral, EVERY 6 | | 8 08:00 | | | | | HOURS NEEDED, Starting Yaneli | | PST | | | | | 07/04/17 [...] (CLEOCIN) IV 900 | New Bag | | 900 mg | | | | mg IN D5W (RTU) 900 mg, | | 8 21:01 | | | | | intravenous, EVERY 8 HOURS, First | | PST | | | | | dose on Yaneli 07/04/17 at 1930, | | | | | | | Until Discontinued | | | | | | + +---------+ +--------+---+---+ +---+---+ | | | +---+---+ + +---------+ +--------+---+---+ | clindamycin (CLEOCIN) IV 900 | New Bag | | 900 mg | | | | mg IN D5W (RTU) 900 mg, | | 8 07:05 | | | | | intravenous, EVERY 8 HOURS, First | | PST | | | | | dose on Sat07/05/17 at 0500, | | | | | | | Until Discontinued | | | | | | + +---------+ +--------+---+---+ +---+---+ | | | +---+---+ + + + +-------+-------+---+ | dextrose 5%-NaCl 0.45%-KCl 20 | Restarte | | 125 | 125 | | | mEq/L IV infusion 125 mL/hr, | d | 8 00:52 | mL/hr | mL/hr | | | intravenous, CONTINUOUS, Starting | | PST | | | | | Yaneli 07/04/17 at 1830, Until Fri | | | | | | | 07/05/17 at 1606 | | | | | | + + + +-------+-------+---+ + + +-------+-------+---+ | Rate/Dose Verify | | 125 | 125 | | | | 8 04:53 | mL/hr | mL/hr | | | | PST | | | | + + +-------+-------+---+ | New Bag | | 125 | 125 | | | | 8 07:08 | mL/hr | mL/hr | | | | PST | | | | + + +-------+-------+---+ +---+---+ | | | +---+---+ + +-------+ +---------+---+---+ | diphenhydrAMINE (BENADRYL) | Given | | 12.5 mg | | | | injection 12.5 mg 12.5 mg, | | 8 23:42 | | | | | intravenous, EVERY 4 HOURS | | PST | | | | | NEEDED, Starting Yaneli 07/04/17 at | | | | | | | 2325, Until Sat07/05/17 at 1606, | | | | | | | itching | | | | | | + +-------+ +---------+---+---+ +---------+ +---------+---+---+ | IV Push | | 12.5 mg | | | | | 8 08:00 | | | | | | PST | | | | +---------+ +---------+---+---+ + +---+ | | | + +---+ | hydrOXYzine (ATARAX) tablet 10 | | | mg 10 mg, oral, EVERY 6 HOURS | | | NEEDED, Starting Yaneli 07/04/17 at | | | 2326, Until Sat07/05/17 at 1606, | | | itching second line | | + +---+ | | | + +---+ + +---------+ +--------+---+---+ | iohexol (OMNIPAQUE) 350 mg | IV Push | | 100 mL | | | | iodine/mL injection 100 mL 100 | | 8 17:20 | | | | | mL, intravenous, ONCE, 1 dose, | | PST | | | | | Yaneli 07/04/17 at 1800 | | | | | | + +---------+ +--------+---+---+ +---+---+ | | | +---+---+ + +-------+ +---+---+---+ | lidocaine PF (XYLOCAINE MPF) 10 | Given | | | | | | mg/mL (1 %) injection | | 8 19:34 | | | | | infiltration, ONCE, 1 dose, Yaneli | | PST | | | | | 07/04/17 at 2000 | | | | | | + +-------+ +---+---+---+ +---+---+ | | | +---+---+ + +-------+ +-------+---+---+ | lidocaine-EPINEPHrine | Given | | 10 mL | | | | (XYLOCAINE WITH EPINEPHRINE) 1 | | 8 19:35 | | | | | %-1:100,000 injection 10 mL 10 | | PST | | | | | mL, infiltration, ONCE, 1 dose, | | | | | | | Yaneli 07/04/17 at 2000 | | | | [...] injection 2-4 mg 2-4 | Given | | 4 mg | | | | mg, intravenous, EVERY 30 MINUTES | | 8 18:37 | | | | | NEEDED, Starting Yaneli 07/04/17 | | PST | | | | | at 1749, Until Yaneli 07/04/17 at | | | | | | | 2130, moderate pain | | | | | | + +-------+ +------+---+---+ +-------+ +------+---+---+ | Given | | 4 mg | | | | | 8 20:00 | | | | | | PST | | | | +-------+ +------+---+---+ | Given | | 4 mg | | | | | 8 21:31 | | | | | | PST | | | | +-------+ +------+---+---+ + +---+ | | | + +---+ | morphine injection 1 dose, | | | Starting Yaneli 07/04/17 at 1756, | | | Until Yaneli 07/04/17 at 1757 | | + +---+ | | | + +---+ + +-------+ +------+---+---+ | oxyCODONE (immediate release) | Given | | 5 mg | | | | (ROXICODONE) tablet 5-10 mg 5-10 | | 8 07:03 | | | | | mg, oral, EVERY 4 HOURS | | PST | | | | | NEEDED, Starting Yaneli 07/04/17 at | | | | | | | 2130, Until Sat07/05/17 at 1606, | | | | | | | severe pain | | | | | | + +-------+ +------+---+---+ +-------+ +------+---+---+ | Given | | 5 mg | | | | | 8 08:00 | | | | | | PST | | | | +-------+ +------+---+---+ +---+---+ | | | +---+---+ + +---------+ +-------+---+---+ | piperacillin-tazobactam (ZOSYN) | New Bag | | 4.5 g | | | | IV 4.5 g 4.5 g, intravenous, | | 8 02:39 | | | | | EVERY 8 HOURS, First dose on Fri | | PST | | | | | 07/05/17 at 0200, Until | | | | | | | Discontinued | | | | | | + +---------+ +-------+---+---+ +---+---+ | | | +---+---+ + +---------+ +-------+---+---+ | piperacillin-tazobactam (ZOSYN) | New Bag | | 4.5 g | | | | IV 4.5 g 4.5 g, intravenous, | | 8 20:01 | | | | | ONCE, 1 dose, Yaneli 07/04/17 at 1930 | | PST | | | | + +---------+ [...] (SENOKOT) tablet 1 tablet | Given | | 1 tablet | | | | 1 tablet, oral, DAILY, First | | 8 01:08 | | | | | dose on Yaneli 07/04/17 at 2245, | | PST | | | | | Until Discontinued | | | | | | + +-------+ + +---+---+ + +---+ | | | + +---+ | senna-docusate (SENOKOT S) | | | 8.6-50 mg 1 tablet 1 tablet, | | | oral, TWICE DAILY, First dose on | | | 07/05/17 at 0900, Until | | | Discontinued | | + +---+ | | | + +---+ + +---------+ + +---+---+ | vancomycin (VANCOCIN) IV 1,500 | New Bag | | 1,500 mg | | | | mg 1,500 mg, intravenous, EVERY | | 8 08:01 | | | | | 8 HOURS, First dose on Fri | | PST | | | | | 07/05/17 at 0600, Until | | | | | | | Discontinued | | | | | | + +---------+ + +---+---+ +---+---+ | | | +---+---+ + +---------+ + +---+---+ | vancomycin (VANCOCIN) IV 2,000 | New Bag | | 2,000 mg | | | | mg 2,000 mg, intravenous, ONCE, | | 8 21:32 | | | | | 1 dose, [facility] 07/04/17 at 1930 | | PST | | | | + +---------+ + +---+---+ +---+---+ | | | +---+---+ in this encounter
--- OUTSIDE RECORDS SUMMARY | ~2017-07-09 | XMS | Encounter Summary ---
Demographics + + + | Address | [address] | | | [place] [address] | + + + | Home Phone | | + + + | Preferred Language | Unknown | + + + | Marital Status | Single | + + + | Alevism Affiliation | NON | + + + | Race | White | + + + | Ethnic Group | Not or | + + + Author + + + | Author | [facility] | + + + | Organization | [facility] | + + + | Address [...] Team Providers + +------+ + | Care Etl Architect Name | Role | Phone | + +------+ + | Sandra Hernandez | PCP | | + +------+ + Encounter Details +--------+ + + + + | Date | Type | Department | Care Team | Description | +--------+ + + + + | 07/04/ | Procedure | [facility] Emergency | | | | 2018 | Pass | Department [address] | | | | | | [address] | | | | | | [facility] | | | | | | [place] [address] | | | | | | [phone] | | | +--------+ + + + [...] + + + as of this encounter Plan of Treatment Not on fileas of this encounter Visit Diagnoses Not on filein this encounter"
--- OUTSIDE RECORDS SUMMARY | ~2017-07-09 | XMS | Encounter Summary ---
Demographics + + + | Address | [address] | | | [place] [address] | + + + | Home Phone | | + + + | Preferred Language | Unknown | + + + | Marital Status | Single | + + + | Buddhism Affiliation | NON | + + + | Race | White | + + + | Ethnic Group | Not or | + + + Author + + + | Author | [facility] | + + + | Organization | [facility] | + + + | [...] Team Providers + +------+ + | Care Stranner Name | Role | Phone | + +------+ + | Sandra Hernandez | PCP | | + +------+ + Encounter Details +--------+ + + + + | Date | Type | Department | Care Team | Description | +--------+ + + + + | 07/04/ | Procedure | [facility] Emergency | | | | 2018 | Pass | Department [address] | | | | | | [address] | | | | | | [facility] | | | | | | [place] [address] | | | | | | [phone] | | | +--------+ + + + [...]
--- OUTSIDE RECORDS SUMMARY | ~2017-07-09 | XMS | Encounter Summary ---
Demographics + + + | Address | [address] | | | [place] [address] | + + + | Home Phone | | + + + | Preferred Language | Unknown | + + + | Marital Status | Single | + + + | Sikhism Affiliation | NON | + + + | Race | White | + + + | Ethnic Group | Not or | + + + Author + + + | Author | [facility] | + + + | Organization | [facility] | + + + | [...] Team Providers + +------+ + | Care Founder Ceo & President Name | Role | Phone | + [...] + + | 07/04/ | Emergency | [facility] Emergency | Latoya Dhillon, | | | 2018 - | | Department [address] | Roxy Love MD [address] | | | | | [address] | [address] | | | 07/05/ | | [facility] | [place], [place] | | | 2018 | | [place] [address] | [address] | | | | | [phone] | [phone] | | | | | | | | | | | | Micha Pena, | | | | | | ROSA [address] | | | | | | [address] | | | | | | [place], [place] | | | | | | [address] | | | | | | [phone] | | | | | | | | | | | | Etta Rosario, | | | | | | SHON [address] [facility] | | | | | | [facility] | | | | | | [place], [place] | | | | | | [address] | | | | | | [phone] | | | | | | | [...] has progressively worsened. He went to the [facility] ED threedays ago and was prescribed keflex and bactrim. The pain and swelling didn't get better, and he started to get pain and swelling up into his right groin. He has had some lo w grade fevers (100F) and sweats, but no high fevers or rigors. Voiding without problem. He came with his GF to [facility] ED for further eval." - Micha [...] 1.27 0.70 - 1.30 mg/dL EGFR - FINNISH >60 >60 mL/min EGFR NON -FINNISH >60 >60 mL/min SODIUM, PLASMA (LAB) 135 [...] cannot be sent through Care Everywhere.Abscess: Perineal (Cook Islander )in this encounter Medications at Time of [...] him with packing changes. He lives in [place] and would prefer to follow up with his PCP there as opposed to coming back here. - Antibiotic regimen for cellulitis per ED staff - Please follow up wound culture and adjust antibiotics accordingly - Continue BID perineal wound packing changes - Follow up with PCP in one week for wound check Mary Connolly MD Department of Urology Pager [phone] in this encounter Plan of Treatment + [...] | + + + | Urine | [facility]OR[facility]ORY SERVICES, CORE [address] | | | [place] [address] | + + + UA, DIPSTICK ONLY [...] | SPECIFIC GRAVITY | 1.041 (H)Comment: Specific [place] | 1.005 - 1.030 | | | performed by refractometry | | + + + + + + + | Specimen | Performing Laboratory | + + + | Urine | [facility], CORE [address] | | | [place] [address] | + + + ED BG-LAC,POC (07/04/2017 [...] TESTS [address] | | | [place] [address] | + + + CT PELVIS W [...] 5:45PM by | | Bronson Lea - White Work Cleaner. I have personally reviewed the images | [...] | 5:45PM by Dr. Bronson Lea - White Work Cleaner.I have personally reviewed the images | | [...] @ 5:45PM by Dr. Bronson Lea - White Work Cleaner. | | | | | | | [...] | + + + | Blood | [facility], CORE [address] | | | [place] [address] | + + + + + | [...] | >60 | >60 mL/min | | FINNISH | | | + +---------+ + | EGFR NON | >60 | >60 mL/min | | -FINNISH | | | + +---------+ + | [...] | + + + | Blood | [facility], CORE [address] | | | [place] [address] | + + + + + | [...] | ------ CBC AND AUTO | | DIFF[[id number]] Abnormal Final | | result Please view [...] | | | | | 1 dose, [facility] 07/04/17 at 1930 | | PST | | | | + +---------+ + +---+---+ +---+---+ | | | +---+---+ in this encounter
--- OUTSIDE RECORDS SUMMARY | ~2017-07-09 | XMS | Clinical Summary ---
Demographics + + + | Address | [address] | | | [place] [address] | + + + | Home Phone | | + + + | Preferred Language | Unknown | + + + | Marital Status | Single | + + + | Anabaptist Affiliation | NON | + + + [...] Team Providers + +------+ + | Care Priming Powder Premix Blender Name | Role | Phone | + +------+ + | Sandra Hernandez | PP | | + +------+ + Source Comments LUIS DANIEL is fully live on both [facility] and [facility] InPatient.[facility] Allergies No Known Allergies Current Medications [...] | | 2018 - | | | Royx Love MD | | | | | [...] | | | Perineal | | | [id number]. | | | 3 | | | [...] | | | the | | | [facility] | | | ED | | | [...] | | Micha | | | Jean, NOTCHING PRESS OPERATOR | | | H&P noteED | | [...] | | | - | | | PALESTINIAN | | | >60 >60 | | [...] | SPECIFIC GRAVITY | 1.041 (H)Comment: Specific [place] | 1.005 - 1.030 | | | performed by refractometry | | + + + + + + + | Specimen | Performing Laboratory | + + + | Urine | [facility], CORE [address] | | | [place] [address] | + + + URINE, MICROSCOPIC EXAM [...] | + + + | Urine | [facility], CORE [address] | | | [place] [address] | + + + ED BG-LAC,POC (07/04/2017 [...] + + + | | [facility] POINT OF CARE TESTS [address] | | | [place] [address] | + + + CT PELVIS W IV CONTRAST (07/04/2017 5:19 PM) + + + | Specimen | Performing Laboratory | + + + | | [facility] RADIOLOGY VOICE RECOGNITION | + + [...] by . | | Bronson Lea - Wedding Planner. I have personally reviewed the images | | and, if necessary, edited the report. I agree with the report as now presented. | + + + + | Procedure Note | + + | Service Account, [employer] Res In Interface - 07/04/2017 6:07 PM [...] | 5:45PM by Dr. Bronson Lea - Wedding Planner.I have personally reviewed the images | | [...] @ 5:45PM by Dr. Bronson Lea - Wedding Planner. | | | | | | | [...] | + + + | Blood | [facility], CORE [address] | | | [place] [address] | + + + + + | [...] | ------ CBC AND AUTO | | DIFF[[id number]] Abnormal Final | | result Please view [...] | >60 | >60 mL/min | | PALESTINIAN | | | + +---------+ + | EGFR NON | >60 | >60 mL/min | | -PALESTINIAN | | | + +---------+ + | [...] | + + + | Blood | [facility], CORE [address] | | | [place] [address] | + + + + + | [...]
[~2017-07-09 08:28] MED LIST: ADVIL200 MG PO; ASPIRIN325 MG PO; BACTRIM DS TAB1 EACH PO; DILAUDID4 MG PO; KEFLEX500 MG PO; MIRALAX17 GM PO; MOBIC7.5 MG PO; OXYCODONE HCL5 MG PO; PRILOSEC20 MG PO; XARELTO10 MG PO
[2017-07-09] MEDS ORDERED: BACTRIM 400-801 EACH PO (08:58)
== END 2017-07-09 09:05 | disposition home or self-care (01) ==
LOC: ED 08:28
DX: Z48.817 Encounter for surgical aftercare following surgery on the skin and subcutaneous tissue (principal); F17.200 Nicotine dependence, unspecified, uncomplicated
CPT/HCPCS: 99281

== ENCOUNTER 2017-10-04 19:33 | Emergency (ER) | payer OTHER ==
[~2017-10-04] VITALS: Ht 190.5 cm; Wt 142.9 kg
[~2017-10-04 19:33] MED LIST changes: +BACTRIM 400-801 EACH PO
== END 2017-10-04 20:49 | disposition home or self-care (01) ==
LOC: ED 19:33
DX: S43.52XA Sprain of left acromioclavicular joint, initial encounter (principal); F17.200 Nicotine dependence, unspecified, uncomplicated; W19.XXXA Unspecified fall, initial encounter
CPT/HCPCS: 73000; 99283

== ENCOUNTER 2019-01-26 12:44 | Emergency (ER) | payer OTHER ==
[~2019-01-26] VITALS: Ht 190.5 cm; Wt 142.9 kg
[2019-01-26] MEDS ORDERED: ACETAMINOPHEN-CO5 ML PO (15:01)
[2019-01-26] MEDS ORDERED: INDOMETHACIN50 MG PO (15:01)
--- NOTE | 2019-01-27 09:19 | EKG ---
[facility] [address] [place] [address] Signed Normal sinus rhythm with sinus arrhythmia Normal ECG No previous ECGs available Confirmed by JEB PEREZ MD ([id number]) on 01/27/2019 9:18:53 AM Electronically Signed By: JEB PEREZ MD 01/27/19 0919 PATIENT NAME: WILLIAM BRUNO Electrocardiogram DATE OF : 89 PHYSICIAN: JEB PEREZ MD REPORT #: [id number] REPORT IS CONFIDENTIAL AND NOT TO BE RELEASED WITHOUT AUTHORIZATION
== END 2019-01-26 15:24 | disposition home or self-care (01) ==
LOC: ED 12:44
DX: R07.9 Chest pain, unspecified (principal); F17.200 Nicotine dependence, unspecified, uncomplicated
CPT/HCPCS: 71045; 93005; 93010; 99285-25

== ENCOUNTER 2019-12-24 00:27 | Emergency (ER) | payer OTHER ==
[~2019-12-24] VITALS: Ht 190.5 cm; Wt 158.8 kg
--- OUTSIDE RECORDS SUMMARY | ~2019-12-24 | XMS | Encounter Summary ---
Demographics + + + | Address | [address] | | | [place] [address] | + + + | Home Phone | | + + + | Preferred Language | Unknown | + + + | Marital Status | Single | + + + | Synagogue Affiliation | NON | + + + | Race | White | + + + | Ethnic Group | Not or | + + + Author + + + | Author | [facility] | + + + | Organization | [facility] | + + + | Address | Unknown | + + + | Phone | Unavailable | + + + Support + + + + + | Name | Relationship | Address | Phone | + + + + + | Gilbert & Jossy | MARICRUZ | [place] | | | [place] | | | | + + + + + Care Team Providers + +------+ + | Care Mass Spectroscopist Name | Role | Phone | + +------+ + | Sandra Hernandez | PCP | | + +------+ + Encounter Details +--------+ + + + + | Date | Type | Department | Care Team | Description | +--------+ + + + + | 07/04/ | Procedure | Diagnostic Imaging | | | | 2017 | Pass | Services at [facility] | | | | | | [address] | | | | | | [place] | | | | | | [facility], [address] [place] [address] | | | | | | [place], [place] | | | | | | [address] | | | | | | [phone] | | | +--------+ + + + + Social History + +-------+ +--------+------+ | Tobacco Use | Types | Packs/Day | Years | Date | | | | | Used | | + +-------+ +--------+------+ | Current Every Day | | | | | | Smoker | | | | | + +-------+ +--------+------+ + +---+---+---+ | Smokeless Tobacco: | | | | | Never Used | | | | + +---+---+---+ + + | Comments: 1 ppd | + + + + +---------+ + | Alcohol Use | Drinks/Week | oz/Week | Comments | + + +---------+ + | Yes | | | social | + + +---------+ + + + + | Sex Assigned at | Date Recorded | | | | + + + | Not on file | | + + + + + + + | Job Start Date | Occupation | Industry | + + + + | Not on file | Not on file | Not on file | + + + + + + + + | Travel History | Travel Start | Travel End | + + + + + + | No recent travel history available. | + + documented as of this encounter Plan of Treatment Not on filedocumented as of this encounter Visit Diagnoses Not on filedocumented in this encounter"
--- OUTSIDE RECORDS SUMMARY | ~2019-12-24 | XMS | Clinical Summary ---
Demographics + + + | Address | [address] | | | [place] [address] | + + + | Home Phone | | + + + | Preferred Language | Unknown | + + + | Marital Status | Single | + + + | Uatsdin Affiliation | NON | + + + | Race | White | + + + | Ethnic Group | Not or | + + + Author + + + | Author | [facility] | + + + | Organization | [facility] | + + + | Address | Unknown | + + + | Phone | Unavailable | + + + Support + + + + + | Name | Relationship | Address | Phone | + + + + + | Gilbert & Jossy | ECON | [place] | | | [place] | | | | + + + + + Care Team Providers + +------+ + | Care Manager Machine Name | Role | Phone | + +------+ + | Sandra Hernandez | PCP | | + +------+ + Source Comments LUIS DANIEL is fully live on both [facility] and [facility] InPatient.[facility] Allergies No Known Allergies Medications + + + +---------+------+------+-------+ | Medication | Sig | Dispensed | Refills | Star | End | Statu | | | | | | t | Date | s | | | | | | Date | | | + + + +---------+------+------+-------+ | methocarbamol 500 | Take 1,000 mg by | | 0 | | | Activ | | mg oral tablet | mouth four times | | | | | e | | | daily as needed. | | | | | | + + + +---------+------+------+-------+ | | Take 1-2 tablets by | | 0 | | | Activ | | HYDROcodone-acetamin | mouth every four | | | | | e | | ophen 5-325 mg oral | hours as needed. | | | | | | | tablet | | | | | | | + + + +---------+------+------+-------+ | oxyCODONE | Take 1-2 tablets by [...] | | | | | + + + +---------+------+------+-------+ | ibuprofen 600 mg | Take 1 [...] | | | | | + + + +---------+------+------+-------+ | acetaminophen 500 | Take 2 tablets [...] | | | | | + + + +---------+------+------+-------+ Active Problems Not on file Social History + +-------+ +--------+------+ | Tobacco [...] recent travel history available. | + + Last Filed Vital Signs + + + + + | Vital Sign | Reading | Time Taken | Comments | + + + + + | Blood Pressure | 132/70 | 07/05/2017 10:05 AM | | | | | PST | | + + + + + | Pulse | 78 | 07/05/2017 10:05 AM | | | | | PST | | + + + + + | Temperature | 37.2 C (98.9 F) | 07/05/2017 7:42 AM | | | | | PST | | + + + + + | Respiratory Rate | 16 | 07/05/2017 7:42 AM | | | | | PST | | + + + + + | Oxygen Saturation | 94% | 07/05/2017 7:42 AM | | | | | PST | | + + + + + | Inhaled Oxygen | - | - | | | Concentration | | | | + + + + + | Weight | 153.3 kg (338 lb) | 07/04/2017 3:23 PM | | | | | PST | | + + + + + | Height | 190.5 cm (6' 3") | 07/04/2017 5:59 PM | | | | | PST | | + + + + + | Body Mass Index | 42.25 | 07/04/2017 3:23 PM | | | | | PST | | + + + + + Plan of Treatment + + + + + | Health Maintenance | Due Date | Last Done | Comments | + + + + + | Pneumococcal | | | | | vaccination (1 of 1 | 4 | | | | - PPSV23) | | | | + + + + + | Influenza (Flu) | | | | | vaccination (#1) | 9 | | | + + + + + Results Not on filefrom Last 3 Months Insurance + +--------+ +--------+-------+---------+--------+ | Payer | Benefi | Subscriber | Effect | Phone | Address | Type | | | t Plan | ID | maryse | | | | | | / | | Dates | | | | | | Group | | | | | | + +--------+ +--------+-------+---------+--------+ | HOSPICE DIRECTOR MEDICAID | HOSPICE DIRECTOR | xxxxxxxx | 05/20/19 | | | Medica | | | [place] | | 18-Pre | | | id | | | [place] | | sent | | | | + +--------+ +--------+-------+---------+--------+ + +--------+ +--------+ + + | Guarantor Name | Accoun | Relation to | Date | Phone | Billing Address | | | t Type | Patient | of | | | | | | | | | | + +--------+ +--------+ + + | Abdiaziz Anders | Person | Self [birth year] | [address] | | | al/Fam | | 1986 | [phone] | [address] [place], | | | [place] | | | [address] (Home) | [place] [address] | + +--------+ +--------+ + +
--- OUTSIDE RECORDS SUMMARY | ~2019-12-24 | XMS | Encounter Summary ---
Demographics + + + | Address | [address] | | | [place] [address] | + + + | Home Phone | | + + + | Preferred Language | Unknown | + + + | Marital Status | Single | + + + | Rastafarian Affiliation | NON | + + + | Race | White | + + + | Ethnic Group | Not or | + + + Author + + + | Author | [facility] | + + + | Organization | [facility] | + + + | Address | [...] Team Providers + +------+ + | Care Nutritional Chemist Name | Role | Phone | + +------+ + | Sandra Hernandez | PCP | | + +------+ + Reason for Visit + + + | Reason | Comments | + + + | Testicular swelling | | + + + | Testicular Pain | | + + + AUTH/CERT +--------+--------+ + + + + | Status | Reason | Specialty | Diagnoses / | Referred By | Referred To | | | | | Procedures | Contact | Contact | +--------+--------+ + + + + | | | | | | | +--------+--------+ + + + + Encounter Details +--------+ + + + + | Date | Type | Department | Care Team | Description | +--------+ + + + + | 07/04/ | Emergency | [facility] Emergency | Latoya Dhillon, | | | 2018 - | | Department [address] | Roxy Love MD [address] | | | | [address] | [address] | | | 07/05/ | | [facility] | [address] [place], [place] | | | 2018 | | [place], [place] | [id number] | | | | | [address] | | | | | | [phone] | Micha Pena, | | | | | | ANP [address] | | | | | [address] | | | | | | [place], [place] | | | | | | [address] | | | | | | [phone] | | | | | | | | | | | | Etta Rosario, | | | | | | SHON [address] | | | | | | [address] [facility] | | | | | | [place], [place] | | | | | | [address] | | | | | | [phone] | | | | | | | | | | | | Chemo Tamayo PA-C | | | | | | [address] | | | | | | [facility], | | | | | | [place] [address] | | | | | | [phone] | | | | | | | | +--------+ + + + [...] + + documented as of this encounter Last Filed Vital Signs + + + [...] | | + + + + + documented in this encounter Discharge Summaries Chemo Tamayo PA-C - 07/05/2017 7:01 AM PSTFormatting of this note might be different fro m the original. 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 male with a PMH of chronic hip pain who prese nted to the ED for evaluation of scrotal pain. Abdiaziz Anders is a 31 y.o. male w/ obesity and chronic hip pain s/p hip replacement who presents with perineal pain that started about 5-6 days ago. He reports that he had a "p imple" on the posterior aspect of his scrotum that he popped. A day or two later, he noticed pain and swelling around the area which has progressively worsened. He went to the [facility] ED threedays ago and was prescribed keflex and bactrim. The pain and swelling didn't get better, and he started to get pain and swelling up into his right groin. He has had some lo w grade fevers (100F) and sweats, but no high fevers or rigors. Voiding without problem. He came with his GF to [facility] ED for further eval." - Micha Pena NP H&P note ED Acute Course: ED Triage Vitals BP Temp Pulse Pulse - Plethysmograph Resp SpO2 07/04/17 1523 07/04/17 1523 07/04/17 1523 07/04/17 1816 07/04/17 1523 07/04/17 1523 138/73 36.8 C (!) 107 80 pulses/min 20 100 % "Upon presentation to the ED, Rosemarie vital signs were initially notable for elevated BP to 138/73, tachycardia to 107 with otherwise normal vital signs. Physical exam significa nt for On the right posterior scrotum, there is a punctate dimple with underlying fluctuant collection just deep to the skin, some erythema of the skin. Moderately tender. CT pelvis sh owed focal perineal abscess with phlegmonous change and cellulitis stretching and the scrotu m and superiorly around the right spermatic cord. Urology service was consulted and drained the abscess. Patient was started on IV vancomycin and zosyn. Once stable, the patient was transferred to the Emergency Department Observation Unit with a diagnosis of scrotal abscess for continuation of care including serial examinations, IV ab x, and re-evaluation by urology." - Micha Pena NP Observation Unit Course: While in ED Obs, the patient remained hemodynamically stable. He has been tolerating the an tibiotics. He feels well enough for discharge this morning after urology evaluated and repac ked his incision site. They recommended BID packing until wound heals in which his significa nt other with help with. They agreed with antibiotics and follow up with his PCP in 7 days. If he cannot get into his PCPs office he can call them for a follow up appointment. Imaging/Pertinent Results: CT abdomen/pelvis with IV contrast IMPRESSION: - Focal perineal abscess with phlegmonous change and cellulitis stretching and the scrotum and superiorly around the right spermatic cord. Consults: Urology Pertinent Exam Findings: BP 132/70 | Pulse 78 | Temp 37.2 C | RR 16 | Ht 1.905 m (6' 3") | Wt 153.3 kg (338 lb) | SpO2 94% | BMI 42.25 kg/(m^2) General appearance: Non-toxic. NAD. HEENT: NCAT. Sclera anicteric, without injection, EOMI. Mucous membranes moist. Trachea mid line. CV: +S1, +S2, RRR, no rubs, murmurs, clicks or gallops. Resp: Chest symmetrical. No respiratory distress. No use of accessory muscles. CTAB, no w heezes, rales, rhonchi, or rubs. Abdomen: Soft, NT/ND. No rebound or guarding. NABS x 4. No HSM noted. Extrem: No deformities or visible joint swelling. : Perineal/scrotal abscess s/p I&D and packed/bandaged just moments ago by urology. Peripheral Vascular: No edema, warmth, or TTP. 2+ DP pulses bilaterally. No cyanosis or clu bbing. Neuro: A&O x3, CN II-XII intact grossly, equal movement of all extremities, sensation and m otor function grossly intact. Psych: Appropriate mood, affect and insight. Skin: Appropriate color, warm, dry. Assessment/Plan: 1. Scrotal abscess s/p I&D - Tolerated IV unasyn, vanco, and clindamycin while here - Transition to PO bactrim now that the wound has been drained - Urology recommends BID packing until wound heals - Follow up with PCP in 5-7 days or with urology if unable to get into your PCP Disposition: Home Discharge Condition: Stable Medications: Discharge Medication List as of 07/05/2017 9:44 AM START taking these medications Details acetaminophen 500 mg oral tablet Take 2 tablets by mouth every six hours as needed for mode rate pain. maximum 8 tablets per day, Disp-30 tablet, R-0, Print Prescription ibuprofen 600 mg oral tablet Take 1 tablet by mouth every six hours as needed (pain). Take with food and a full glass of water., Disp-30 tablet, R-0, Print Prescription oxyCODONE (immediate release) 5 mg oral tablet Take 1-2 tablets by mouth every six hours as needed for severe pain or breakthrough pain., Disp-20 tablet, R-0Schedule IIPrint Prescript ion trimethoprim-sulfamethoxazole 160-800 mg oral tablet Take 1 tablet by mouth two times daily for 7 days., Disp-14 tablet, R-0, Print Prescription Instructions: 1. Activity: As tolerated 2. Diet: Regular 3. Follow up or establish care with a primary care provider in 7 days, or sooner if needed. 4. Return to care if the symptoms you presented with worsen or persist despite current nabila tment plan or if any other symptoms arise that are concerning such as but not limited to fev ers, chills, nausea, vomiting, chest pain, abdominal pain, shortness of breath, neck pain or stiffness, severe headaches, confusion, or if any other symptoms arise that are concerning. Follow-up: 1. PCP in 7 days or sooner if needed for wound recheck 2. Urology in 7 days if you cannot see your PCP by that time Chemo Tamayo PA-C Emergency Department Results for orders placed or performed during the hospital encounter of 07/04/17 BASIC METABOLIC SET (NA, K, CL, TCO2, BUN, CR, GLU, CA) Result Value Ref Range GLUCOSE, PLASMA (LAB) 89 70 - 99 mg/dL BUN, PLASMA (LAB) 12 6 - 20 mg/dL CREATININE PLASMA (LAB) 1.27 0.70 - 1.30 mg/dL EGFR - PALAUAN >60 >60 mL/min EGFR NON -PALAUAN >60 >60 mL/min SODIUM, PLASMA (LAB) 135 (L) 136 - 145 mmol/L POTASSIUM, PLASMA (LAB) 3.8 3.4 - 5.0 mmol/L CHLORIDE, PLASMA (LAB) 102 97 - 108 mmol/L TOTAL CO2, PLASMA (LAB) 25 21 - 32 mmol/L CALCIUM, PLASMA (LAB) 9.0 8.6 - 10.2 mg/dL ANION GAP 8 4 - 11 mmol/L POTASSIUM CMNT No Hemo UA, DIPSTICK ONLY Result Value Ref Range COLOR(UR) Yellow APPEARANCE Clear GLUCOSE(UR) Negative Negative, 50.0 mg/dL PROTEIN(LAB) Negative Negative, 30.0 mg/dL BILIRUBIN Negative Negative UROBILINOGEN >=4.0 (A) <2.0 mg/dL PH(UR) 5.0 5.0 - 8.0 BLOOD Negative Negative KETONES 5.0 (A) Negative mg/dL NITRITES Negative Negative LEUKOCYTE ESTERASE Negative Negative SPECIFIC GRAVITY 1.041 (H) 1.005 - 1.030 URINE, MICROSCOPIC EXAM Result Value Ref Range RED CELLS 1 0 - 3 /hpf WHITE CELLS 1 0 - 5 /hpf BACTERIA None None /hpf YEAST (LAB) None None /hpf SQUAMOUS EPITHELIAL None None /hpf MUCOUS None None /hpf TRICHOMONAS None None /hpf NON-SQUAMOUS EPITH None None /hpf HYALINE CASTS 0 0 - 2 /lpf GRANULAR CASTS 0 0 - 2 /lpf CELLULAR CASTS 0 <=0 /lpf TRIPLE P04 CRYSTALS None None /hpf CALCIUM OXALATE JUSTINO None None /hpf URIC ACID CRYSTALS None None /hpf AMORPHOUS CRYSTALS None None /hpf CULTURE, WOUND ABSCESS OR ASPIRATE W/ ANAEROBE Result Value Ref Range CULTURE RESULT Staphylococcus aureus (A) Susceptibility Staphylococcus aureus - SUSCEPTIBILITY-RENEE Cefazolin Sensitive Clindamycin Sensitive Erythromycin Sensitive Oxacillin Sensitive Penicillin Resistant Trimethoprim/Sulfa Sensitive Tetracycline Sensitive Vancomycin Sensitive ED BG-LAC,POC Result Value Ref Range ED BG POC TC02 28 23 - 29 mmol/L ED BG POC PH 7.40 7.35 - 7.45 ED BG POC PCO2 43 35 - 50 mmHg ED BG POC HCO3 26 22 - 28 mmol/L ED BG POC BE 2.0 mmol/L ED BG POC PO2 <50 (L) 30 - 55 mmHg ED BG POC SO2 42 % ED LACTATE POC 1.2 0.5 - 2.2 mmol/L ED BG POC TEMP 98.9 F ISTAT SAMPLE TYPE VENOUS CBC AND AUTO DIFF Result Value Ref Range WHITE CELL COUNT 17.40 (H) 3.50 - 10.80 K/cu mm RED CELL COUNT 5.08 4.50 - 6.00 M/cu mm HEMOGLOBIN 15.3 13.5 - 17.5 g/dL HEMATOCRIT 45.6 41.0 - 53.0 % MCV 89.8 80.0 - 96.0 fL MCHC 33.6 33.0 - 35.5 g/dL RDW SD 41.3 35.1 - 46.3 fL PLATELET COUNT 321 150 - 400 K/cu mm MPV 9.5 (L) 9.7 - 12.3 fL NRBC% 0.0 0.0 - 0.3 % NRBC# 0.00 0.00 - 0.02 K/cu mm NEUTROPHIL % 72.6 (H) 50.0 - 70.0 % LYMPHOCYTE % 16.1 (L) 18.0 - 42.0 % MONOCYTE % 8.0 3.5 - 9.0 % EOS % 2.5 1.0 - 3.0 % BASO % 0.3 0.0 - 2.0 % IG% 0.5 0.0 - 1.0 % NEUTROPHIL # 12.61 (H) 1.80 - 7.70 K/cu mm LYMPHOCYTE # 2.81 1.00 - 4.80 K/cu mm MONOCYTE # 1.40 (H) 0.10 - 0.90 K/cu mm EOS # 0.43 0.00 - 0.50 K/cu mm BASO # 0.06 0.00 - 0.10 K/cu mm IG# 0.09 0.00 - 0.10 K/cu mm CULTURE, BLOOD BACTI & YEAST [facility] Result Value Ref Range CULTURE RESULT No growth to date. CULTURE, BLOOD BACTI & YEAST [facility] Result Value Ref Range CULTURE RESULT No growth to date. documented in this en counter Discharge Instructions Instructions Chemo Tamayo PA-C - 07/05/2017Follow up or establish care with a primary car e provider in 7 days, or sooner if needed. Take the Bactrim (antibiotic) as prescribed. Use pain medication as prescribed. Change packing twice daily until wound heals as instructed. Keep area clean and dry. Return to care if the symptoms you presented with worsen or persist despite current treatme nt plan or if any other symptoms arise that are concerning such as but not limited to fevers , chills, nausea, vomiting, worsening pain or swelling in the affected area, chest pain, abd ominal pain, shortness of breath, neck pain or stiffness, severe headaches, confusion, or if any other symptoms arise that are concerning. AttachmentsThe following attachments cannot be sent through Care Everywhere.Abscess: Lia calvillo (Azeri)documented in this encounter Medications at Time of Discharge + + + +---------+ + + | Medication | Sig | Dispensed | Refills | Start | End Date | | | | | | Date | | + + + +---------+ + + | acetaminophen 500 | Take 2 tablets by | 30 | 0 | 07/05/19 | | | mg oral tablet | mouth every six | tablet | | 18 | | | | hours as needed for | | | | | | | moderate pain. | | | | | | | maximum 8 tablets | | | | | | | per day | | | | | + + + +---------+ + + | | Take 1-2 tablets by | | 0 | | | | HYDROcodone-acetamin | mouth every four | | | | | | ophen 5-325 mg oral | hours as needed. | | | | | | tablet | | | | | | + + + +---------+ + + | ibuprofen 600 mg | Take 1 tablet by | 30 | 0 | 02/16/20 | | | oral tablet | mouth every six | tablet | | 18 | | | | hours as needed | | | | | | | (pain). Take with | | | | | | | food and a full | | | | | | | glass of water. | | | | | + + + +---------+ + + | methocarbamol 500 | Take 1,000 mg by | | 0 | | | | mg oral tablet | mouth four times | | | | | | | daily as needed. | | | | | + + + +---------+ + + | oxyCODONE | Take 1-2 tablets by | 20 | 0 | 02/16/20 | | | (immediate release) | mouth every six | tablet | | 18 | | | 5 mg oral tablet | hours as needed for | | | | | | | severe pain or | | | | | | | breakthrough pain. | | | | | + + + +---------+ + + | | Take 1 tablet by | 14 | 0 | 07/05/19 | | | trimethoprim-sulfame | mouth two times | tablet | | 18 | 8 | | thoxazole 160-800 mg | daily for 7 days. | | | | | | oral tablet | | | | | | + + + +---------+ + + documented as of this encounter Progress Notes Mary Connolly MD - 07/05/2017 9:44 AM PST BRIEF UROLOGY NOTE S: No acute events overnight. Afebrile, sore in the perineum, but otherwise doing ok. O: BP Readings from Last 1 Encounters: 07/05/17 133/72 Pulse Readings from Last 1 Encounters: 07/05/17 79 Resp Readings from Last 1 Encounters: 07/05/17 16 Wt Readings from Last 1 Encounters: 07/04/17 (!) 153.3 kg (338 lb) Temp Readings from Last 1 Encounters: 07/05/17 37.2 C (98.9 F) Body mass index is 42.25 kg/m. PE: Gen- NAD - perineal packing removed, no new areas of fluctuance appreciated. Perineal induration, no pain tracking up spermatic cord A/P: 31 yo male with perineal abscess s/p bedside I&D. Doing well today. We discussed that he needs to change his scrotal packing twice daily to allow for proper wound healing. He sta halley that his girlfriend will help him with packing changes. He lives in [place] and would prefer to follow up with his PCP there as opposed to coming back here. - Antibiotic regimen for cellulitis per ED staff - Please follow up wound culture and adjust antibiotics accordingly - Continue BID perineal wound packing changes - Follow up with PCP in one week for wound check Mary Connolly MD Department of Urology Pager [phone] documented in this encounter Plan of Treatment Not on filedocumented as of this encounter Procedures + +--------+ + + + | Procedure Name | Priori | Date/Time | Associated Diagnosis | Comments | | | ty | | | | + +--------+ + + + | CULTURE, WOUND | Urgent | 07/04/2017 | | Results for this | | ABSCESS OR ASPIRATE | | 8:00 PM | | procedure are in the | | W/ ANAEROBE | | PST | | results section. | + +--------+ + + + | UA, DIPSTICK ONLY | Urgent | 07/04/2017 | | Results for this | | | | 6:32 PM | | procedure are in the | | | | PST | | results section. | + +--------+ + + + | URINE, MICROSCOPIC | Urgent | 07/04/2017 | | Results for this | | EXAM | | 6:32 PM | | procedure are in the | | | | PST | | results section. | + +--------+ + + + | CULTURE, BLOOD BACTI | Urgent | 07/04/2017 | | Results for this | | & YEAST [facility] | | 6:15 PM | | procedure are in the | | | | PST | | results section. | + +--------+ + + + | CULTURE, BLOOD BACTI | Urgent | 07/04/2017 | | Results for this | | & YEAST | | 6:15 PM | | procedure are in the | | | | PST | | results section. | + +--------+ + + + | BG-LAC,POC ISTAT | Urgent | 07/04/2017 | | Results for this | | | | 6:01 PM | | procedure are in the | | | | PST | | results section. | + +--------+ + + + | CULTURE, BLOOD BACTI | Urgent | 07/04/2017 | | Results for this | | & YEAST [facility] | | 5:50 PM | | procedure are in the | | | | PST | | results section. | + +--------+ + + + | CULTURE, BLOOD BACTI | Urgent | 07/04/2017 | | Results for this | | & YEAST | | 5:50 PM | | procedure are in the | | | | PST | | results section. | + +--------+ + + + | CT PELVIS W IV | Urgent | 07/04/2017 | | Results for this | | CONTRAST | | 5:19 PM | | procedure are in the | | | | PST | | results section. | + +--------+ + + + | CBC AND AUTO DIFF | Urgent | 07/04/2017 | | Results for this | | | | 3:41 PM | | procedure are in the | | | | PST | | results section. | + +--------+ + + + | CBC, WITH | Urgent | 07/04/2017 | | Results for this | | DIFFERENTIAL | | 3:41 PM | | procedure are in the | | | | PST | | results section. | + +--------+ + + + | BASIC METABOLIC SET | Urgent | 07/04/2017 | | Results for this | | (NA, K, CL, TCO2, | | 3:41 PM | | procedure are in the | | BUN, CR, GLU, CA) | | PST | | results section. | + +--------+ + + + documented in this encounter Results CULTURE, WOUND ABSCESS OR ASPIRATE W/ ANAEROBE (07/04/2017 8:00 PM PST) + + + + + + | Component | Value | Ref Range | Performed | Pathologist | | | | | At | Signature | + + + + + + | CULTURE | Staphylococcus aureus | | [facility] - | | | RESULT | (A) | | [facility] | | | | | | [place] | | + + + + + + + + | Specimen | + + | Aspirate - Scrotal | | structure (body | | structure) | + + + + + | Narrative | Performed At | + + + | Culture Report: 3+ Staphylococcus aureus No anaerobic organisms | [facility] - | | isolated Gram Stain: Many squamous epithelial cells Many | [facility] - | | polymorphonuclear cells Many Gram positive cocci in clusters Few | [facility] | | Gram negative bacilli | | + + + + + + + + | Organism | Antibiotic | Method | Susceptibility | + + + + + | Staphylococcus | Cefazolin | SUSCEPTIBILITY-RENEE | Sensitive | | aureus | | | | + + + + + | Staphylococcus | Clindamycin | SUSCEPTIBILITY-RENEE | Sensitive | | aureus | | | | + + + + + | Staphylococcus | Erythromycin | SUSCEPTIBILITY-RENEE | Sensitive | | aureus | | | | + + + + + | Staphylococcus | Oxacillin | SUSCEPTIBILITY-RENEE | Sensitive | | aureus | | | | + + + + + | Staphylococcus | Penicillin | SUSCEPTIBILITY-RENEE | Resistant | | aureus | | | | + + + + + | Staphylococcus | Trimethoprim/Sulfa | SUSCEPTIBILITY-RENEE | Sensitive | | aureus | | | | + + + + + | Staphylococcus | Tetracycline | SUSCEPTIBILITY-RENEE | Sensitive | | aureus | | | | + + + + + | Staphylococcus | Vancomycin | SUSCEPTIBILITY-RENEE | Sensitive | | aureus | | | | + + + + + + + + + + | Performing | Address | City/State/Zipcode | Phone Number | | Organization | | | | + + + + + | [facility] | [address] | [place] [address] | | | [place] | | | | + + + + + URINE, MICROSCOPIC EXAM (07/04/2017 6:32 PM PST) + +-------+ + + + | Component | Value | Ref Range | Performed | Pathologist | | | | | At | Signature | + +-------+ + + + | RED CELLS | 1 | 0 - 3 /hpf | [facility] | | | | | | LABORATORY | | | | | | SERVICES, | | | | | | CORE | | + +-------+ + + + | WHITE CELLS | 1 | 0 - 5 /hpf | [facility] | | | | | | LABORATORY | | | | | | SERVICES, | | | | | | CORE | | + +-------+ + + + | BACTERIA | None | None /hpf | [facility] | | | | | | LABORATORY | | | | | | SERVICES, | | | | | | CORE | | + +-------+ + + + | YEAST (LAB) | None | None /hpf | [facility] | | | | | | LABORATORY | | | | | | SERVICES, | | | | | | CORE | | + +-------+ + + + | SQUAMOUS | None | None /hpf | [facility] | | | EPITHELIAL | | | LABORATORY | | | | | | SERVICES, | | | | | | CORE | | + +-------+ + + + | MUCOUS | None | None /hpf | [facility] | | | | | | LABORATORY | | | | | | SERVICES, | | | | | | CORE | | + +-------+ + + + | TRICHOMONAS | None | None /hpf | [facility] | | | | | | LABORATORY | | | | | | SERVICES, | | | | | | CORE | | + +-------+ + + + | NON-SQUAMOU | None | None /hpf | [facility] | | | S EPITH | | | LABORATORY | | | | | | SERVICES, | | | | | | CORE | | + +-------+ + + + | HYALINE | 0 | 0 - 2 /lpf | [facility] | | | CASTS | | | LABORATORY | | | | | | SERVICES, | | | | | | CORE | | + +-------+ + + + | GRANULAR | 0 | 0 - 2 /lpf | [facility] | | | CASTS | | | LABORATORY | | | | | | SERVICES, | | | | | | CORE | | + +-------+ + + + | CELLULAR | 0 | <=0 /lpf | [facility] | | | CASTS | | | LABORATORY | | | | | | SERVICES, | | | | | | CORE | | + +-------+ + + + | TRIPLE P04 | None | None /hpf | [facility] | | | CRYSTALS | | | LABORATORY | | | | | | SERVICES, | | | | | | CORE | | + +-------+ + + + | CALCIUM | None | None /hpf | [facility] | | | OXALATE | | | LABORATORY | | | JUSTINO | | | SERVICES, | | | | | | CORE | | + +-------+ + + + | URIC ACID | None | None /hpf | [facility] | | | CRYSTALS | | | LABORATORY | | | | | | SERVICES, | | | | | | CORE | | + +-------+ + + + | AMORPHOUS | None | None /hpf | [facility] | | | CRYSTALS | | | LABORATORY | | | | | | SERVICES, | | | | | | CORE | | + +-------+ + + + + + | Specimen | + + | Urine | + + + + + + + | Performing | Address | City/State/Zipcode | Phone Number | | Organization | | | | + + + + + | [facility] | [address] | [place] [address] | | | SERVICES, CORE | [address] | | | + + + + + UA, DIPSTICK ONLY (07/04/2017 6:32 PM PST) + + + + + + | Component | Value | Ref Range | Performed | Pathologist | | | | | At | Signature | + + + + + + | COLOR(UR) | Yellow | | [facility] | | | | | | LABORATORY | | | | | | SERVICES, | | | | | | CORE | | + + + + + + | APPEARANCE | Clear | | [facility] | | | | | | LABORATORY | | | | | | SERVICES, | | | | | | CORE | | + + + + + + | GLUCOSE(UR) | Negative | Negative, 50.0 | [facility] | | | | | mg/dL | LABORATORY | | | | | | SERVICES, | | | | | | CORE | | + + + + + + | PROTEIN(LAB | Negative | Negative, 30.0 | [facility] | | | ) | | mg/dL | LABORATORY | | | | | | SERVICES, | | | | | | CORE | | + + + + + + | BILIRUBIN | Negative | Negative | [facility] | | | | | | LABORATORY | | | | | | SERVICES, | | | | | | CORE | | + + + + + + | UROBILINOGE | >=4.0 (A) | <2.0 mg/dL | [facility] | | | N | | | LABORATORY | | | | | | SERVICES, | | | | | | CORE | | + + + + + + | PH(UR) | 5.0 | 5.0 - 8.0 | [facility] | | | | | | LABORATORY | | | | | | SERVICES, | | | | | | CORE | | + + + + + + | BLOOD | Negative | Negative | [facility] | | | | | | LABORATORY | | | | | | SERVICES, | | | | | | CORE | | + + + + + + | KETONES | 5.0 (A) | Negative mg/dL | [facility] | | | | | | LABORATORY | | | | | | SERVICES, | | | | | | CORE | | + + + + + + | NITRITES | Negative | Negative | [facility] | | | | | | LABORATORY | | | | | | SERVICES, | | | | | | CORE | | + + + + + + | LEUKOCYTE | Negative | Negative | [facility] | | | ESTERASE | | | LABORATORY | | | | | | SERVICES, | | | | | | CORE | | + + + + + + | SPECIFIC | 1.041 (H)Comment: | 1.005 - 1.030 | [facility] | | | GRAVITY | Specific [place] | | LABORATORY | | | | performed by | | SERVICES, | | | | refractometry | | CORE | | + + + + + + + + | Specimen | + + | Urine | + + + + + + + | Performing | Address | City/State/Zipcode | Phone Number | | Organization | | | | + + + + + | [facility] | [address] | [place] [address] | | | [place], [place] | [address] | | | + + + + + CULTURE, BLOOD BACTI & YEAST [facility] (07/04/2017 6:15 PM PST) + + + + + + | Component | Value | Ref Range | Performed | Pathologist | | | | | At | Signature | + + + + + + | CULTURE | Final Report:No Bacteria | | [facility] | | | RESULT | or Yeast isolated at 5 | | LABORATORY | | | | days. | | SERVICES, | | | | | | CORE | | + + + + + + + + | Specimen | + + | Blood - Structure of | | right hand (body | | structure) | + + + + + + + | Performing | Address | City/State/Zipcode | Phone Number | | Organization | | | | + + + + + | [facility] | [address] | [place] [address] | | | SERVICES, CORE | [address] | | | + + + + + ED BG-LAC,POC (07/04/2017 6:01 PM PST) + +---------+ + + + | Component | Value | Ref Range | Performed | Pathologist | | | | | At | Signature | + +---------+ + + + | ED BG POC | 28 | 23 - 29 mmol/L | [facility] - | | | TC02 | | | [facility] | | | | | | [facility] | | | | | | OF CARE | | | | | | TESTS | | + +---------+ + + + | ED BG POC | 7.40 | 7.35 - 7.45 | [facility] - | | | PH | | | [facility] | | | | | | [facility] | | | | | | [facility] | | | | | | TESTS | | + +---------+ + + + | ED BG POC | 43 | 35 - 50 mmHg | [facility] - | | | PCO2 | | | [facility] | | | | | | [facility] | | | | | | OF CARE | | | | | | TESTS | | + +---------+ + + + | ED BG POC | 26 | 22 - 28 mmol/L | [facility] - | | | HCO3 | | | [facility] | | | | | | [facility] | | | | | | OF CARE | | | | | | TESTS | | + +---------+ + + + | ED BG POC | 2.0 | mmol/L | [facility] - | | | BE | | | [facility] | | | | | | [facility] | | | | | | OF CARE | | | | | | TESTS | | + +---------+ + + + | ED BG POC | <50 (L) | 30 - 55 mmHg | [facility] - | | | PO2 | | | [facility] | | | | | | [facility] | | | | | | OF CARE | | | | | | TESTS | | + +---------+ + + + | ED BG POC | 42 | % | [facility] - | | | SO2 | | | [facility] | | | | | | [facility] | | | | | | OF CARE | | | | | | TESTS | | + +---------+ + + + | ED LACTATE | 1.2 | 0.5 - 2.2 | [facility] - | | | POC | | mmol/L | [facility] | | | | | | [facility] | | | | | | OF CARE | | | | | | TESTS | | + +---------+ + + + | ED BG POC | 98.9 F | | [facility] - | | | TEMP | | | [facility] | | | | | | [facility] | | | | | | OF CARE | | | | | | TESTS | | + +---------+ + + + | ISTAT | VENOUS | | [facility] - | | | SAMPLE TYPE | | | [facility] | | | | | | [facility] | | | | | | OF CARE | | | | | | TESTS | | + +---------+ + + + + + | Specimen | + + | | + + + + + + + | Performing | Address | City/State/Zipcode | Phone Number | | Organization | | | | + + + + + | [facility] | [address] | [place], [place] | | | [facility] | [address] | [address] | | | TESTS | | | | + + + + + CULTURE, BLOOD BACTI & YEAST [facility] (07/04/2017 5:50 PM PST) + + + + + + | Component | Value | Ref Range | Performed | Pathologist | | | | | At | Signature | + + + + + + | CULTURE | Final Report:No Bacteria | | [facility] | | | RESULT | or Yeast isolated at 5 | | LABORATORY | | | | days. | | SERVICES, | | | | | | CORE | | + + + + + + + + | Specimen | + + | Blood - Antecubital | | region structure | | (body structure) | + + + + + + + | Performing | Address | City/State/Zipcode | Phone Number | | Organization | | | | + + + + + | [facility] | [address] | [place] [address] | | | SERVICES, CORE | [address] | | | + + + + + CT PELVIS W IV CONTRAST (07/04/2017 5:19 PM PST) + + | Specimen | + + | | + + + + + | Narrative | Performed At | + + + | EXAM: CT pelvis with contrast HISTORY: R inguinal pain and | [facility] | | peroneal pain/swelling COMPARISON: None available. TECHNIQUE: | RADIOLOGY VOICE | | CT of the pelvis with non-ionic iodinated intravenous contrast. | RECOGNITION | | Coronal and sagittal reformats were created. FINDINGS: PELVIC | | | ORGANS/BLADDER: There is a perineal abscess measuring 3.1 x 1.3 x | | | 1.0cm (image 3/77 and 1/150), with adjacent inflammatory stranding and | | | phlegmonous change extending superiorly into the base of the scrotum | | | and surrounding the right spermatic cord. There is no subcutaneous | | | gas. GI TRACT: Visualized portion is unremarkable. The appendix is | | | well-visualized and normal appearing. PERITONEUM: No free air or | | | fluid. LYMPH NODES: Multiple enlarged bilateral inguinal | | | lymphadenopathy are noted (image 3/43-57). Index right groin lymph | | | node measures 3.3 x 2.0 cm (image 1/91 and 3/54); these are likely | | | reactive. VESSELS: Unremarkable. BONES AND SOFT TISSUES: Right | | | total hip arthroplasty hardware is noted with associated artifact | | | limiting evaluation. IMPRESSION: Focal perineal abscess with | | | phlegmonous change and cellulitis stretching and the scrotum and | | | superiorly around the right spermatic cord. These results were | | | discussed with Dr. Tafoya On 07/04/17 @ 5:45PM by Dr. Bronson Lea | | | - Vessel Crew Member. I have personally reviewed the images | | | and, if necessary, edited the report. I agree with the report as | | | now presented. | | + + + + + | Procedure Note | + + | Service Account, Radiant Res In Interface - 07/04/2017 6:07 PM PST EXAM: CT pelvis | | with contrastHISTORY: R inguinal pain and peroneal pain/swellingCOMPARISON: None | | available.TECHNIQUE: CT of the pelvis with non-ionic iodinated intravenous contrast. | | Coronal and sagittal reformats were created.FINDINGS:PELVIC ORGANS/BLADDER: There is a | | perineal abscess measuring 3.1 x 1.3 x 1.0cm (image 3/77 and 1/150), with adjacent | | inflammatory stranding and [...] | measures 3.3 x 2.0 cm (image 1/91 and 3/54); these are likely reactive.VESSELS: | | Unremarkable.BONES [...] | 5:45PM by Dr. Bronson Lea - Vessel Crew Member.I have personally reviewed the images | | and, if necessary, edited the report. I agree with the report as now presented. | |LYMPH NODES: Multiple enlarged bilateral inguinal lymphadenopathy are noted (image 3/43-57) . Index right groin lymph node measures 3.3 x 2.0 cm (image 191 and 3/54); these are likely reactive. | | | [...] @ 5:45PM by Dr. Bronson Lea - Vessel Crew Member. | | | | | | | |I have personally reviewed the images and, if necessary, edited the report. I agree with t he report as now presented. | + + + +---------+ + + | Performing | Address | City/State/Zipcode | Phone Number | | Organization | | | | + +---------+ + + | [facility] | | | | | VOICE RECOGNITION | | | | + +---------+ + + CBC AND AUTO DIFF (07/04/2017 3:41 PM PST) + + + + + + | Component | Value | Ref Range | Performed | Pathologist | | | | | At | Signature | + + + + + + | WHITE CELL | 17.40 (H) | 3.50 - 10.80 | [facility] | | | COUNT | | K/cu mm | LABORATORY | | | | | | SERVICES, | | | | | | CORE | | + + + + + + | RED CELL | 5.08 | 4.50 - 6.00 | [facility] | | | COUNT | | M/cu mm | LABORATORY | | | | | | SERVICES, | | | | | | CORE | | + + + + + + | HEMOGLOBIN | 15.3 | 13.5 - 17.5 | [facility] | | | | | g/dL | LABORATORY | | | | | | SERVICES, | | | | | | CORE | | + + + + + + | HEMATOCRIT | 45.6 | 41.0 - 53.0 % | [facility] | | | | | | LABORATORY | | | | | | SERVICES, | | | | | | CORE | | + + + + + + | MCV | 89.8 | 80.0 - 96.0 fL | [facility] | | | | | | LABORATORY | | | | | | SERVICES, | | | | | | CORE | | + + + + + + | MCHC | 33.6 | 33.0 - 35.5 | [facility] | | | | | g/dL | LABORATORY | | | | | | SERVICES, | | | | | | CORE | | + + + + + + | RDW SD | 41.3 | 35.1 - 46.3 fL | [facility] | | | | | | LABORATORY | | | | | | SERVICES, | | | | | | CORE | | + + + + + + | PLATELET | 321 | 150 - 400 K/cu | [facility] | | | COUNT | | mm | LABORATORY | | | | | | SERVICES, | | | | | | CORE | | + + + + + + | MPV | 9.5 (L) | 9.7 - 12.3 fL | [facility] | | | | | | LABORATORY | | | | | | SERVICES, | | | | | | CORE | | + + + + + + | NRBC% | 0.0 | 0.0 - 0.3 % | [facility] | | | | | | LABORATORY | | | | | | SERVICES, | | | | | | CORE | | + + + + + + | NRBC# | 0.00 | 0.00 - 0.02 | [facility] | | | | | K/cu mm | LABORATORY | | | | | | SERVICES, | | | | | | CORE | | + + + + + + | NEUTROPHIL | 72.6 (H) | 50.0 - 70.0 % | [facility] | | | % | | | LABORATORY | | | | | | SERVICES, | | | | | | CORE | | + + + + + + | LYMPHOCYTE | 16.1 (L) | 18.0 - 42.0 % | [facility] | | | % | | | LABORATORY | | | | | | SERVICES, | | | | | | CORE | | + + + + + + | MONOCYTE % | 8.0 | 3.5 - 9.0 % | [facility] | | | | | | LABORATORY | | | | | | SERVICES, | | | | | | CORE | | + + + + + + | EOS % | 2.5 | 1.0 - 3.0 % | [facility] | | | | | | LABORATORY | | | | | | SERVICES, | | | | | | CORE | | + + + + + + | BASO % | 0.3 | 0.0 - 2.0 % | [facility] | | | | | | LABORATORY | | | | | | SERVICES, | | | | | | CORE | | + + + + + + | IG% | 0.5Comment: Increased | 0.0 - 1.0 % | [facility] | | | | immature granulocytes | | LABORATORY | | | | (IG) define a left | | SERVICES, | | | | shift. Immature | | CORE | | | | granulocytes (IG) are an | | | | | | automated count of | | | | | | metamyelocytes, | | | | | | myelocytes and | | | | | | promyelocytes. Bands | | | | | | are not included in the | | | | | | IG count. Bands are | | | | | | included in the | | | | | | neutrophil count. | | | | + + + + + + | NEUTROPHIL | 12.61 (H) | 1.80 - 7.70 | [facility] | | | # | | K/cu mm | LABORATORY | | | | | | SERVICES, | | | | | | CORE | | + + + + + + | LYMPHOCYTE | 2.81 | 1.00 - 4.80 | [facility] | | | # | | K/cu mm | LABORATORY | | | | | | SERVICES, | | | | | | CORE | | + + + + + + | MONOCYTE # | 1.40 (H) | 0.10 - 0.90 | [facility] | | | | | K/cu mm | LABORATORY | | | | | | SERVICES, | | | | | | CORE | | + + + + + + | EOS # | 0.43 | 0.00 - 0.50 | [facility] | | | | | K/cu mm | LABORATORY | | | | | | SERVICES, | | | | | | CORE | | + + + + + + | BASO # | 0.06 | 0.00 - 0.10 | [facility] | | | | | K/cu mm | LABORATORY | | | | | | SERVICES, | | | | | | CORE | | + + + + + + | IG# | 0.09 | 0.00 - 0.10 | [facility] | | | | | K/cu mm | LABORATORY | | | | | | SERVICES, | | | | | | CORE | | + + + + + + + + | Specimen | + + | Blood - Blood | | (substance) | + + + + + | Narrative | Performed At | + + + | New reference ranges for IG% and IG# effective 06/09/2017. | [facility] | | Increased immature granulocytes (IG) define a left shift. Immature | LABORATORY | | granulocytes (IG) are an automated count of metamyelocytes, myelocytes | SERVICES, CORE | | and promyelocytes. Bands are not included in the IG count. Bands are | | | included in the neutrophil count. | | + + + + + + + + | Performing | Address | City/State/Zipcode | Phone Number | | Organization | | | | + + + + + | [facility] | [address] | [place] [address] | | | SERVICES, CORE | [address] | | | + + + + + BASIC METABOLIC SET (NA, K, CL, TCO2, BUN, CR, GLU, CA) (07/04/2017 3:41 PM PST) + +---------+ + + + | Component | Value | Ref Range | Performed | Pathologist | | | | | At | Signature | + +---------+ + + + | GLUCOSE, | 89 | 70 - 99 mg/dL | [facility] | | | PLASMA | | | LABORATORY | | | (LAB) | | | SERVICES, | | | | | | CORE | | + +---------+ + + + | BUN, PLASMA | 12 | 6 - 20 mg/dL | [facility] | | | (LAB) | | | LABORATORY | | | | | | SERVICES, | | | | | | CORE | | + +---------+ + + + | CREATININE | 1.27 | 0.70 - 1.30 | [facility] | | | PLASMA | | mg/dL | LABORATORY | | | (LAB) | | | SERVICES, | | | | | | CORE | | + +---------+ + + + | EGFR | >60 | >60 mL/min | [facility] | | | - | | | LABORATORY | | | PALAUAN | | | SERVICES, | | | | | | CORE | | + +---------+ + + + | EGFR NON | >60 | >60 mL/min | [facility] | | | -JAN | | | LABORATORY | | | RICAN | | | SERVICES, | | | | | | CORE | | + +---------+ + + + | SODIUM, | 135 (L) | 136 - 145 | [facility] | | | PLASMA | | mmol/L | LABORATORY | | | (LAB) | | | SERVICES, | | | | | | CORE | | + +---------+ + + + | POTASSIUM, | 3.8 | 3.4 - 5.0 | [facility] | | | PLASMA | | mmol/L | LABORATORY | | | (LAB) | | | SERVICES, | | | | | | CORE | | + +---------+ + + + | CHLORIDE, | 102 | 97 - 108 mmol/L | [facility] | | | PLASMA | | | LABORATORY | | | (LAB) | | | SERVICES, | | | | | | CORE | | + +---------+ + + + | TOTAL CO2, | 25 | 21 - 32 mmol/L | [facility] | | | PLASMA | | | LABORATORY | | | (LAB) | | | SERVICES, | | | | | | CORE | | + +---------+ + + + | CALCIUM, | 9.0 | 8.6 - 10.2 | [facility] | | | PLASMA | | mg/dL | LABORATORY | | | (LAB) | | | SERVICES, | | | | | | CORE | | + +---------+ + + + | ANION GAP | 8 | 4 - 11 mmol/L | [facility] | | | | | | LABORATORY | | | | | | SERVICES, | | | | | | CORE | | + +---------+ + + + | POTASSIUM | No Hemo | | [facility] | | | CMNT | | | LABORATORY | | | | | | SERVICES, | | | | | | CORE | | + +---------+ + + + + + | Specimen | + + | Blood - Blood | | (substance) | + + + + + | Narrative | Performed At | + + + | Adult glucose reference range change effective 7-12-17. GFR is | [facility] | | estimated using the MDRD equation recommended by the National Kidney | LABORATORY | | Disease Education Program. Estimated GFR Interpretive Information: | SERVICES, CORE | | <60 mL/min/1.73 sq m Chronic Kidney Disease | | | <15 mL/min/1.73 sq m Kidney Failure Estimated | | | GFR greater that 60 mL/min/1.73 sq m is of limited clinical value. 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 | + + documented in this encounter Administered Medications + +--------+ + +------+------+ | Medication Order | MAR | Action | Dose | Rate | Site | | | Action | Date | | | | + +--------+ + +------+------+ | acetaminophen (TYLENOL) tablet | Given | 07/05/19 | 1,000 mg | | | | 1,000 mg 1,000 mg, oral, EVERY 6 | | 18 8:00 | | | | | HOURS NEEDED, Starting Yaneli | | AM PST | | | | | 07/04/17 at 2130, Until Fri | | | | | | | 07/05/17 at 1606, multimodal pain | | | | | | | control | | | | | | + +--------+ + +------+------+ + +---+ | | | + +---+ | bisacodyl (DULCOLAX) | | | suppository 10 mg 10 mg, rectal, | | | DAILY NEEDED, Starting Yaneli | | | 07/04/17 at 2237, Until Fri | | | 07/05/17 at 1606, 2nd line for no | | | BM in past 2 days or if no | | | response to MIRALAX or if patient | | | unable to tolerate oral | | + +---+ | | | + +---+ + +---------+ +--------+---+---+ | clindamycin (CLEOCIN) IV 900 | New Bag | 07/04/19 | 900 mg | | | | mg IN D5W (RTU) 900 mg, | | 18 9:01 | | | | | intravenous, EVERY 8 HOURS, First | | PM PST | | | | | dose on Sat07/04/17 at 1930, | | | | | | | Until Discontinued | | | | | | + +---------+ +--------+---+---+ +---+---+ | | | +---+---+ + +---------+ +--------+---+---+ | clindamycin (CLEOCIN) IV 900 | New Bag | 07/05/19 | 900 mg | | | | mg IN D5W (RTU) 900 mg, | | 18 7:05 | | | | | intravenous, EVERY 8 HOURS, First | | AM PST | | | | | dose on Sat07/05/17 at 0500, | | | | | | | Until Discontinued | | | | | | + +---------+ +--------+---+---+ +---+---+ | | | +---+---+ + +---------+ +-------+-------+---+ | dextrose 5%-NaCl 0.45%-KCl 20 | New Bag | 07/05/19 | 125 | 125 | | | mEq/L IV infusion 125 mL/hr, | | 18 7:08 | mL/hr | mL/hr | | | intravenous, CONTINUOUS, Starting | | AM PST | | | | | Yaneli 07/04/17 at 1830, Until Fri | | | | | | | 07/05/17 at 1606 | | | | | | + +---------+ +-------+-------+---+ + + +-------+-------+---+ | Rate/Dose Verify | 07/05/19 | 125 | 125 | | | | 18 4:53 | mL/hr | mL/hr | | | | AM PST | | | | + + +-------+-------+---+ | Restarted | 07/05/19 | 125 | 125 | | | | 18 12:52 | mL/hr | mL/hr | | | | AM PST | | | | + + +-------+-------+---+ +---+---+ | | | +---+---+ + +---------+ +---------+---+---+ | diphenhydrAMINE (BENADRYL) | IV Push | 07/05/19 | 12.5 mg | | | | injection 12.5 mg 12.5 mg, | | 18 8:00 | | | | | intravenous, EVERY 4 HOURS | | AM PST | | | | | NEEDED, Starting Yaneli 07/04/17 at | | | | | | | 2325, Until Sat07/05/17 at 1606, | | | | | | | itching | | | | | | + +---------+ +---------+---+---+ +-------+ +---------+---+---+ | Given | 07/04/19 | 12.5 mg | | | | | 18 11:42 | | | | | | PM PST | | | | +-------+ +---------+---+---+ + +---+ | | | + +---+ | hydrOXYzine (ATARAX) tablet 10 | | | mg 10 mg, oral, EVERY 6 HOURS | | | NEEDED, Starting Yaneli 07/04/17 at | | | 2326, Until 07/05/17 at 1606, | | | itching second line | | + +---+ | | | + +---+ + +---------+ +--------+---+---+ | iohexol (OMNIPAQUE) 350 mg | IV Push | 07/04/19 | 100 mL | | | | iodine/mL injection 100 mL 100 | | 18 5:20 | | | | | mL, intravenous, ONCE, 1 dose, | | PM PST | | | | | Yaneli 07/04/17 at 1800 | | | | | | + +---------+ +--------+---+---+ +---+---+ | | | +---+---+ + +-------+ +---+---+---+ | lidocaine PF (XYLOCAINE MPF) 10 | Given | 07/04/19 | | | | | mg/mL (1 %) injection | | 18 7:34 | | | | | infiltration, ONCE, 1 dose, Yaneli | | PM PST | | | | | 07/04/17 at 2000 | | | | | | + +-------+ +---+---+---+ +---+---+ | | | +---+---+ + +-------+ +-------+---+---+ | lidocaine-EPINEPHrine | Given | 07/04/19 | 10 mL | | | | (XYLOCAINE WITH EPINEPHRINE) | | 18 7:35 | | | | | %-1:100,000 injection 10 mL 10 | | PM PST | | | | | mL, infiltration, ONCE, 1 dose, | | | | | | | Yaneli 07/04/17 at 1999 | | | | | | + +-------+ +-------+---+---+ + +---+ | | | + +---+ | methocarbamol (ROBAXIN) tablet | | | 1,000 mg 1,000 mg, oral, FOUR | | | TIMES DAILY NEEDED, Starting | | | Yaneli 07/04/17 at 2239, Until Fri | | | 07/05/17 at 1606, muscle spasms | | + +---+ | | | + +---+ + +-------+ +------+---+---+ | morphine injection 2-4 mg 2-4 | Given | 07/04/19 | 4 mg | | | | mg, intravenous, EVERY 30 MINUTES | | 18 9:31 | | | | | NEEDED, Starting Yaneli 07/04/17 | | PM PST | | | | | at 1749, Until Yaneli 07/04/17 at | | | | | | | 2130, moderate pain | | | | | | + +-------+ +------+---+---+ +-------+ +------+---+---+ | Given | 07/04/19 | 4 mg | | | | | 18 8:00 | | | | | | PM PST | | | | +-------+ +------+---+---+ | Given | 07/04/19 | 4 mg | | | | | 18 6:37 | | | | | | PM PST | | | | +-------+ +------+---+---+ + +---+ | | | + +---+ | morphine injection 1 dose, | | | Starting Sat07/04/17 at 1756, | | | Until Sat07/04/17 at 1757 | | + +---+ | | | + +---+ + +-------+ +------+---+---+ | oxyCODONE (immediate release) | Given | 07/05/19 | 5 mg | | | | (ROXICODONE) tablet 5-10 mg 5-10 | | 18 8:00 | | | | | mg, oral, EVERY 4 HOURS | | AM PST | | | | | NEEDED, Starting Sat07/04/17 at | | | | | | | 2130, Until Sat07/05/17 at 1606, | | | | | | | severe pain | | | | | | + +-------+ +------+---+---+ +-------+ +------+---+---+ | Given | 07/05/19 | 5 mg | | | | | 18 7:03 | | | | | | AM PST | | | | +-------+ +------+---+---+ +---+---+ | | | +---+---+ + +---------+ +-------+---+---+ | piperacillin-tazobactam (ZOSYN) | New Bag | 07/05/19 | 4.5 g | | | | IV 4.5 g 4.5 g, intravenous, | | 18 2:39 | | | | | EVERY 8 HOURS, First dose on Sat | | AM PST | | | | | 07/05/17 at 0200, Until | | | | | | | Discontinued | | | | | | + +---------+ +-------+---+---+ +---+---+ | | | +---+---+ + +---------+ +-------+---+---+ | piperacillin-tazobactam (ZOSYN) | New Bag | 07/04/19 | 4.5 g | | | | IV 4.5 g 4.5 g, intravenous, | | 18 8:01 | | | | | ONCE, 1 dose, [facility] 07/04/17 at 1930 | | PM PST | | | | + +---------+ +-------+---+---+ + +---+ | | | + +---+ | polyethylene glycol (MIRALAX) | | | packet 34 g 34 g, oral, THREE | | | TIMES DAILY NEEDED, Starting | | | Yaneli 07/04/17 at 2237, Until Fri | | | 07/05/17 at 1606, 1st line - for | | | no BM for 2 days | | + +---+ | | | + +---+ + +-------+ + +---+---+ | senna (SENOKOT) tablet 1 tablet | Given | 07/05/19 | 1 tablet | | | | 1 tablet, oral, DAILY, First | | 18 1:08 | | | | | dose on Yaneli 07/04/17 at 2245, | | AM PST | | | | | Until Discontinued | | | | | | + +-------+ + +---+---+ + +---+ | | | + +---+ | senna-docusate (SENOKOT S) | | | 8.6-50 mg 1 tablet 1 tablet, | | | oral, TWICE DAILY, First dose on | | | Sat07/05/17 at 0900, Until | | | Discontinued | | + +---+ | | | + +---+ + +---------+ + +---+---+ | vancomycin (VANCOCIN) IV 1,500 | New Bag | 07/05/19 | 1,500 mg | | | | mg 1,500 mg, intravenous, EVERY | | 18 8:01 | | | | | 8 HOURS, First dose (after last | | AM PST | | | | | modification) on Sat07/05/17 at | | | | | | | 0600, Until Discontinued | | | | | | + +---------+ + +---+---+ +---+---+ | | | +---+---+ + +---------+ + +---+---+ | vancomycin (VANCOCIN) IV 2,000 | New Bag | 07/04/19 | 2,000 mg | | | | mg 2,000 mg, intravenous, ONCE, | | 18 9:32 | | | | | 1 dose, [facility] 07/04/17 at 1930 | | PM PST | | | | + +---------+ + +---+---+ +---+---+ | | | +---+---+ documented in this encounter
--- OUTSIDE RECORDS SUMMARY | ~2019-12-24 | XMS | Encounter Summary ---
Demographics + + + | Address | [address] | | | [place] [address] | + + + | Home Phone | | + + + | Preferred Language | Unknown | + + + | Marital Status | Single | + + + | Sabianism Affiliation | NON | + + + | Race | White | + + + | Ethnic Group | Not or | + + + Author + + + | Author | [facility] | + + + | Organization | [facility] | + + + | Address | [...] Providers + +------+ + | Care Manager Clinical Pharmacy Name | Role | Phone | + [...] + + | 07/04/ | Emergency | [facility] Emergency | Latoya Dhillon, | | | 2018 - | | Department [address] | Roxy Love MD [address] | | | | | [address] | [facility] [address] | | | 07/05/ | | [facility] | [address], [place] | | | 2018 | | [place], [place] | [id number] | | | | | [address] | | | | | | [phone] | Micha Pena, | | | | | | ANP [address] | | | | | | [address] | | | | | | [place], [place] | | | | | | [address] | | | | | | [phone] | | | | | | | | | | | | Etta Rosario, | | | | | | SHON [address] | | | | | | [facility] [facility] | | | | | | [place], [place] | | | | | | [address] | | | | | | [phone] | | | | | | | | | | | | Chemo Tamayo PA-C | | | | | | [address] | | | | | | [facility], | | | | | | [place] [address] | | | | | | [phone] | | | | | | | [...] has progressively worsened. He went to the [facility] ED threedays ago and was prescribed keflex and bactrim. The pain and swelling didn't get better, and he started to get pain and swelling up into his right groin. He has had some lo w grade fevers (100F) and sweats, but no high fevers or rigors. Voiding without problem. He came with his GF to [facility] ED for further eval." - Micha Pena [...] 1.27 0.70 - 1.30 mg/dL EGFR - NIGERIEN >60 >60 mL/min EGFR NON -NIGERIEN >60 >60 mL/min SODIUM, PLASMA (LAB) 135 [...] be sent through Care Everywhere.Abscess: Lia calvillo ([place])documented in this encounter Medications at Time of [...] him with packing changes. He lives in [place] and would prefer to follow up with his PCP there as opposed to coming back here. - Antibiotic regimen for cellulitis per ED staff - Please follow up wound culture and adjust antibiotics accordingly - Continue BID perineal wound packing changes - Follow up with PCP in one week for wound check Mary Connolly MD Department of Urology Pager [phone] documented in this encounter Plan of Treatment [...] Gram positive cocci in clusters Few | [facility] | | Gram negative bacilli | [...] + | [facility] - | [address] | [place] [address] | | | [place] | | | | + + + [...] [facility] | [address] | [place] [address] | | | SERVICES, CORE | SHELIA [...] [facility] | | | GRAVITY | [facility] [place] | | LABORATORY | | | | [...] [facility] | [address] | [place] [address] | | | DAYA, ALLEGRA | SHELIA [...] | + + + + + | [facility] | [address] | [place] [address] | | | SERVICES, CORE | SHELIA [...] [facility] | [address] | [place], [place] | | | [facility] | [address] | [id number] | | | TESTS | | | [...] | + + + + + | [facility] | [address] | [place] [address] | | | SERVICES, CORE | SHELIA [...] Dr. Bronson Lea | | | - Electronic Gluing Machine Operator. I have personally reviewed the images [...] | 5:45PM by Dr. Bronson Lea - Electronic Gluing Machine Operator.I have personally reviewed the images | [...] @ 5:45PM by Dr. Bronson Lea - Electronic Gluing Machine Operator. | | | | | | [...] | + + + + + | [facility] | [address] | [place] [address] | | | SERVICES, CORE | SHELIA [...] | | | LABORATORY | | | NIGERIEN | | | SERVICES, | | | [...] | + + + + + | [facility] | [address] | [place] [address] | | | SERVICES, CORE | SHELIA [...] | | | | ONCE, 1 dose, [facility] 07/04/17 at 1930 | | PM PST [...] | | | | | 1 dose, [facility] 07/04/17 at 1930 | | PM PST | | | | + +---------+ + +---+---+ +---+---+ | | | +---+---+ documented in this encounter
--- OUTSIDE RECORDS SUMMARY | ~2019-12-24 | XMS | Encounter Summary ---
Demographics + + + | Address | [address] | | | [place] [address] | + + + | Home Phone | | + + + | Preferred Language | Unknown | + + + | Marital Status | Single | + + + | Islam Affiliation | NON | + + + [...] Team Providers + +------+ + | Care Crm Campaign Manager Name | Role | Phone | + +------+ + | Sandra Hernandez | PCP | | + +------+ + Encounter Details +--------+ + + + + | Date | Type | Department | Care Team | Description | +--------+ + + + + | 07/04/ | Procedure | Diagnostic Imaging | | | | 2017 | Pass | Services at [facility] | | | | | | [address] | | | | | | [address]ie [address] | | | | | | [facility], [address] [place] [address] | | | | | | [place], [place] | | | | | | [address] | | | | | | [phone] | | | +--------+ + + + [...]
--- OUTSIDE RECORDS SUMMARY | ~2019-12-24 | XMS | Clinical Summary ---
Demographics + + + | Address | 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
[~2019-12-24 00:27] MED LIST changes: +ACETAMINOPHEN-CO5 ML PO; +INDOMETHACIN50 MG PO
[2019-12-24] MEDS ORDERED: AUGMENTIN 875-1 EACH PO (00:57)
== END 2019-12-24 01:09 | disposition home or self-care (01) ==
LOC: ED 00:27
DX: J01.90 Acute sinusitis, unspecified (principal); F17.200 Nicotine dependence, unspecified, uncomplicated
CPT/HCPCS: 99283

== ENCOUNTER 2021-05-29 11:37 | Emergency (ER) | payer OTHER ==
[~2021-05-29] VITALS: Ht 190.5 cm; Wt 151.3 kg
[~2021-05-29 11:37] MED LIST changes: +AUGMENTIN 875-1 EACH PO
[2021-05-29] MEDS ORDERED: PREDNISONE20 MG PO (14:13)
== END 2021-05-29 14:19 | disposition home or self-care (01) ==
LOC: ED 11:37
DX: S39.012A Strain of muscle, fascia and tendon of lower back, initial encounter (principal); F17.200 Nicotine dependence, unspecified, uncomplicated; V00.311A Fall from snowboard, initial encounter; Y93.23 Activity, snow (alpine) (downhill) skiing, snowboarding, sledding, tobogganing and snow tubing
CPT/HCPCS: 72100; 99283-25

== ENCOUNTER 2024-09-16 10:44 | Emergency (ER) | payer OTHER ==
[~2024-09-16] VITALS: Ht 190.5 cm; Wt 166.0 kg
[~2024-09-16 10:44] MED LIST changes: +PREDNISONE20 MG PO
[2024-09-16] MEDS ORDERED: KETOROLAC TROMETHAMINE 60 MG/2 ML VIAL IM ONE (11:30)
[2024-09-16] MEDS ORDERED: LIDOCAINE HCL 4% 1 EACH PATCH TD ONE (11:30)
[2024-09-16] MEDS ORDERED: ACETAMINOPHEN 500 MG TAB PO ONE (11:30)
[2024-09-16 12:40] VITALS: BP 152/99
[2024-09-16] MEDS ORDERED: LIDOCAINE PATCH REMOVAL 1 EA TD SCH (21:00)
== END 2024-09-16 12:40 | disposition home or self-care (01) ==
LOC: ED 10:44
DX: M54.50 Low back pain, unspecified (principal); F17.200 Nicotine dependence, unspecified, uncomplicated
CPT/HCPCS: 96372; 99283; A9270; J1885

== ENCOUNTER 2025-04-03 00:40 | Emergency (ER) | payer OTHER ==
[~2025-04-03] VITALS: Ht 190.5 cm; Wt 166.0 kg
[2025-04-03] MEDS ORDERED: ALBUTEROL/IPRATROPIUM 3 ML NEB INH ONE (01:30)
[2025-04-03 01:50] LABS: BASOPHILS 0.8 % (0.2-1.2); EOSINOPHILS 4.0 % (0.8-7.0); LYMPHOCYTES 35.4 % (21.8-53.1); MCH 31.1 PG (25.7-32.2); MCHC 34.0 g/dL (32.3-36.5); MCV 91.3 fL (79.0-92.2); MONOCYTES 9.0 % (5.3-12.2); NEUTROPHILS 50.5 % (34.0-67.9); RBC 4.83 M/uL (4.63-6.08)
[2025-04-03 02:16] LABS: ALT (SGPT) 24.0 U/L (14-59); AST (SGOT) 14.0 U/L (15-37); GLOMERULAR FILTRATION RATE,EST 84.0 mL/min (>60); PROTEIN, TOTAL 7.1 g/dL (6.4-8.2); UREA NITROGEN 17.0 mg/dL (7-18)
[2025-04-03] MEDS ORDERED: METHYLPREDNISOLO4 M1 PO (03:49)
[2025-04-03] MEDS ORDERED: ALBUTEROL SULFATE 8 GM HOME.PACK INH ONE (04:00)
[2025-04-03 04:05] VITALS: BP 136/82
--- NOTE | 2025-04-06 17:57 | EKG ---
[facility] [address] [place] [address] Signed Normal sinus rhythm Normal ECG When compared with ECG of 26-JAN-2019 12:53, No significant change was found Confirmed by Elizabeth Pittman MD () on 04/06/2025 5:57:05 PM Electronically Signed By: ELIZABETH PITTMAN MD 04/06/25 1757 PATIENT NAME: DAMIONWILLIAM Electrocardiogram DATE OF : 89 PHYSICIAN: ELIZABETH PITTMAN MD REPORT #: [id number] REPORT IS CONFIDENTIAL AND NOT TO BE RELEASED WITHOUT AUTHORIZATION
== END 2025-04-03 04:06 | disposition home or self-care (01) ==
LOC: ED 00:40
PROVIDERS: Internal Medicine
DX: J02.9 Acute pharyngitis, unspecified (principal); I10 Essential (primary) hypertension; F17.200 Nicotine dependence, unspecified, uncomplicated
CPT/HCPCS: 36415; 70491; 71045; 80053; 80307; 84484; 85025; 87651; 93005; 93010; 94640; 94664; 99284-25; Q9967